=== PATIENT | male | born 1940 | race Caucasian/White ===

== ENCOUNTER 2017-09-10 20:04 | Emergency (ER) | payer MEDICARE ==
[2017-09-10] MEDS ORDERED: NS 0.9% 1000 ML* 1,000 ML IV ONE (20:30)
[2017-09-10 20:53] LABS: ABS Basophils 0 10^3/ul (0-0.2); ABS Eosinophils 0 10^3/ul (0-0.6); ABS Lymphocytes 0.4 10^3/ul (1.0-4.8); ABS Monocytes 0.5 10^3/ul (0-0.8); ABS Nucleated RBC 0 10^3/ul; Eosinophil % 0.5 % (0-6); Hematocrit 32 % (42-52); Hemoglobin 10.1 g/dl (14.0-18.0); Mean Corpuscular HGB Conc 32 g/dl (31-36); Mean Corpuscular Hemoglobin 25 pg (27-31); Mean Corpuscular Volume 77 fL (80-94); Mean Platelet Volume 8.3 um3 (7.4-10.4); Nucleated Red Blood Cells % 0; Platelet Count 232 10^3/ul (150-450); Red Blood Count 4.12 10^6/ul (4.0-5.4); Red Cell Distribution Width 15 % (10.5-15); White Blood Count 7.9 10^3/ul (3.5-10.8)
--- NOTE | 2017-09-10 21:02 | ED ---
Cb Garcia Tiffany, scribed for Jaclyn Keenan MD on 09/10/17 at 2030 . Complex/Multi-Sys Presentation - HPI Summary HPI Summary: The patient is a 76 year old male BIBA to [facility] accompanied by two sons with a chief complaint of worsening overall condition since the last few days. Symptoms aggravated by nothing. Symptoms alleviated by nothing. Patient reports weakness, decreased appetite. Patient denies nausea, vomiting, shortness of breath. Per son, patient is in stage [address] Phillips ( oncologist at [facility] in [place]). Patient is scheduled for liver biopsy and kidney stent on 09/13/17 at [facility]. Pt is competent to make his own health decisions and states he is a DNR. Pt has a health care proxy, and his is first, and his son Robb is second on the health care proxy. - History Of Current Complaint Chief Complaint: EDGeneral Time Seen by Provider: 09/10/17 20:11 Hx Obtained From: Patient, Family/Assembly Leader - Sons Onset/Duration: Gradual Onset, Lasting Days - Few days, Still Present Timing: Constant Severity Currently: Moderate Severity Initially: Moderate Location: Negative Aggravating Factor(s): Nothing Alleviating Factor(s): Nothing Associated Signs And Symptoms: Positive: Weakness, Decreased Oral Intake, Other - reports weakness, decreased appetite; DENIES: nausea, vomiting, shortness of breath, chest pain - Allergies/Home Medications Allergies/Adverse Reactions: Allergies Allergy/AdvReac Type Severity Reaction Status Date / Time lactose Allergy Diarrhea Verified 09/10/17 20:10 Home Medications: Home Medications Fluorometholone 0.1% OPTH.BARB* [Fml 0.1% Opth.susp*] 1 drop BOTH EYES BID [History Confirmed 09/10/17] PMH/Surg Hx/FS Hx/Imm Hx Previously Healthy: No Endocrine/Hematology History: Denies: Hx Diabetes Cardiovascular History: Reports: Hx Hypertension Respiratory History: Reports: Hx Chronic Obstructive Pulmonary Disease (COPD) - dx 2001, Hx Pneumonia GI History: Reports: Hx Crohn's Disease - with partial colectomy History: Reports: Hx Benign Prostatic Hyperplasia - had prostatectomy, Other Problems/Disorders - prostate CA, bladder CA stage 4 Denies: Hx Renal Disease Sensory History: Reports: Hx Cataracts - both eyes, 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 Prostate CA - Surgical History Surgery Procedure, Year, and Place: prostate 2001, partial colectomy, bilat cataracts - Immunization History Date of Tetanus Vaccine: unk Date of Influenza Vaccine: unk Infectious Disease History: Yes Infectious Disease History: Reports: Hx Shingles - dx 2011 Denies: Traveled Outside the [place] in Last 30 Days - Family History Known Family History: Positive: Other - Mother had Parkinson's. Patient denies immediate family history for CA - Social History Lives: With Family Alcohol Use: None Alcohol Amount: 2-3 beers /wk Hx Substance Use: No Substance Use Type: Reports: None Hx Tobacco Use: Yes Smoking Status (MU): Former Smoker Type: Cigarettes Amount Used/How Often: pk day Length of Time of Smoking/Using Tobacco: 30year Have You Smoked in the Last Year: No Review of Systems Positive: Fatigue, Other - Worsening overall condition. Negative: Fever, Chills , Skin Diaphoresis Cardiovascular: Negative Negative: Shortness Of Breath Positive: Other - Decreased appetite. Negative: Vomiting, Nausea Genitourinary: Negative Positive: no symptoms reported, other - no sharp Skin: Negative Positive: Weakness Psychological: Normal All Other Systems Reviewed And Are Negative: Yes Physical Exam - Summary Physical Exam Summary: Appearance: Patient is acutely and chronically ill, emaciated, in no respiratory distress, completely coherent and able to speak for himself, on 4L NC continuously at home Skin: Warm, color reflects adequate perfusion Head: Normal Head/Face inspection Eyes: Conjunctiva clear ENT: Dry oral mucosa, white patches on his tongue Neck: Supple, no nodes, no JVD. Chest: barrel chest Respiratory: Lungs clear, no respiratory distress, Lungs diminished breath sounds throughout Cardio: RRR, No murmur, pulses normal, brisk capillary refill Abdomen: soft, nontender, no sharp, no masses, liver nonpalp, nontender Bowel sounds: present Musculoskeletal: Strength Intact/ ROM intact. No calf tenderness. No edema. Psychological: Normal Neuro: Alert O x 3, muscle tone normal, no focal deficit Triage Information Reviewed: Yes Vital Signs On Initial Exam: Initial Vitals Temp Pulse Resp BP Pulse Ox 99.8 F 100 14 167/87 97 09/10/17 20:08 09/10/17 20:08 09/10/17 20:08 09/10/17 20:08 09/10/17 20:08 Vital Signs Reviewed: Yes Diagnostics - Vital Signs Vital Signs Temp Pulse Resp BP Pulse Ox 09/10/17 20:08 99.8 F 100 14 167/ 97 - Laboratory Lab Results: Lab Results 09/10/17 09/10/17 Range/Units 20:40 20:40 WBC 7.9 (3.5-10.8) 10^3/ul RBC 4.12 (4.0-5.4) 10^6/ul Hgb 10.1 L (14.0-18.0) g/dl Hct 32 L (42-52) % MCV 77 L (80-94) fL MCH 25 L (27-31) pg MCHC 32 (31-36) g/dl RDW 15 (10.5-15) % Plt Count 232 (150-450) 10^3/ul MPV 8.3 (7.4-10.4) um3 Neut % (Auto) 88.2 H (38-83) % Lymph % (Auto) 5.0 L (25-47) % [place] % (Auto) 5.7 (0-7) % Eos % (Auto) 0.5 (0-6) % Baso % (Auto) 0.6 (0-2) % Absolute Neuts (auto) 7.0 (1.5-7.7) 10^3/ul Absolute Lymphs (auto) 0.4 L (1.0-4.8) 10^3/ul Absolute Monos (auto) 0.5 (0-0.8) 10^3/ul Absolute Eos (auto) 0 (0-0.6) 10^3/ul Absolute Basos (auto) 0 (0-0.2) 10^3/ul Absolute Nucleated RBC 0 10^3/ul Nucleated RBC % 0 INR (Anticoag Therapy) 1.00 (0.77-1.02) Result Diagrams: 09/10/17 20:40 09/10/17 20:40 Lab Statement: Any lab studies that have been ordered have been reviewed, and results considered in the medical decision making process. Re-Evaluation - Re-Evaluation First Eval Re-Evaluation Time: 21:29 Change: Unchanged Comment: Patient and his family are agreeable to transfer. Second Eval Re-Evaluation Time: 21:48 Change: Unchanged Comment: Patient and family are informed that patient will be transferred to [facility] and admitted to Dr. Levine (hospitalist at [facility]). Complex Multi-Symp Course/Dx Course Of Treatment: Allergies noted. High blood pressure noted. Patient medications reviewed this visit. Patient given IV fluids. Labs were obtained, showing worsening renal function. Spoke with [facility] transfer center at 21:31. Dr. Levine (hospitalist) will admit the patient. Reason for transfer is higher level of care, liver biopsy and ureteral stent and further oncology care planned and not available at [facility] today. Dr. Levine notified of patient's situation at 21:37, who requests flu swab. Family are agreeable to this transfer plan. Transfer paperwork was filled out for patient. Dr. Jensen is aware of pt in the ED, with transfer acceptance, pending transport by ambulance with IV fluids 150ml/hr, O2 NC 4L, and DNR in place. - Diagnoses Differential Diagnoses/HQI/PQRI: Metabolic Abnormality, Sepsis, Urinary Tract Infection Provider Diagnoses: Dehydration, Bladder cancer metastasized to liver, COPD (chronic obstructive pulmonary disease), [id number] kidney injury Discharge - Sign-Out/Discharge Documenting (check all that apply): [facility] - Discharge Plan Condition: Stable Disposition: TRANS HIGHER LVL OF CARE FAC - Billing Disposition and Condition Condition: STABLE Disposition: EMTALA The documentation as recorded by the Cb arthur Tiffany accurately reflects the service I personally performed and the decisions made by , Jaclyn Keenan MD.
[2017-09-10 21:04] LABS: EGFR Non-African American 31.8 (>60)
[2017-09-10] MEDS ORDERED: NS 0.9% 1000 ML* 1,000 ML IV SCH (22:15)
[2017-09-10 23:09] VITALS: BP 150/76
== END 2017-09-10 23:08 | disposition short-term general hospital (02) ==
LOC: ED 20:04
DX: E86.0 Dehydration (principal); R53.1 Weakness; C67.9 Malignant neoplasm of bladder, unspecified; C78.7 Secondary malignant neoplasm of liver and intrahepatic bile duct; J44.9 Chronic obstructive pulmonary disease, unspecified; N17.9 Acute kidney failure, unspecified; Z87.891 Personal history of nicotine dependence
CPT/HCPCS: 36415; 80053; 83605; 83735; 85025; 85610; 86140; 87502; 99283

== ENCOUNTER 2017-09-18 20:02 | Inpatient (IN) | payer MEDICARE ==
[2017-09-18 20:32] LABS: ABS Basophils 0.1 10^3/ul (0-0.2); ABS Eosinophils 0 10^3/ul (0-0.6); ABS Lymphocytes 0.3 10^3/ul (1.0-4.8); ABS Monocytes 0.7 10^3/ul (0-0.8); ABS Nucleated RBC 0 10^3/ul; Eosinophil % 0.1 % (0-6); Hematocrit 33 % (42-52); Hemoglobin 10.3 g/dl (14.0-18.0); Lymphocyte % 2.2 % (25-47); Mean Corpuscular HGB Conc 32 g/dl (31-36); Mean Corpuscular Hemoglobin 24 pg (27-31); Mean Corpuscular Volume 77 fL (80-94); Mean Platelet Volume 7.9 um3 (7.4-10.4); Nucleated Red Blood Cells % 0; Platelet Count 317 10^3/ul (150-450); Red Blood Count 4.25 10^6/ul (4.0-5.4); Red Cell Distribution Width 15 % (10.5-15); White Blood Count 14.1 10^3/ul (3.5-10.8)
[2017-09-18 20:41] LABS: INR 1.02 (0.77-1.02)
--- NOTE | 2017-09-18 20:53 | RAD ---
INDICATION: Chest pain and shortness of breath COMPARISON: Chest x-ray dated September 02, 2017 TECHNIQUE: Single AP portable view of the chest was obtained. FINDINGS: Image quality is compromised due to the relative inferiority of a portable chest x-ray. The heart and mediastinum exhibit normal size and contour. Similar the prior chest x-rays the lungs appear hyperaerated in the AP projection. The diaphragm are flattened. There is faint patchy density at the bilateral lung bases more severely at the left lung base than the right. Visualized bones are normal for the patient's age. IMPRESSION: 1. Again seen is stigmata of chronic obstructive pulmonary disease. 2. Interval development of patchy density at the left worse than right lung bases which could represent pneumonia or other infiltrate according to the patient's clinical presentation.
[2017-09-18] MEDS ORDERED: Albuterol 2.5 MG/3 ML NEB.SOL* (0.083%) INH ONE (21:17)
[2017-09-18] MEDS ORDERED: Iodixanol 320 (CONTRAST) 100 ML SDV IV ONE (22:13)
--- NOTE | 2017-09-18 22:54 | ED ---
Stacia Garcia Gabriel, scribed for Jaclyn Keenan MD on 09/18/17 at 2049 . Shortness of Breath - HPI Summary HPI Summary: This patient is a 76 year old M [facility] [facility] accompanied by his son Robb and his with a chief complaint of sudden onset SOB that began this morning but worsened throughout the day. The pt denies chest pain. Has hx COPD on home O2, metastatic bladder cancer to liver, and remote hx prostate cancer. Symptoms aggravated by nothing. Symptoms alleviated by non rebreather mask by EMS. Patient reports pallor, palpitations, temp of 100.2, and chills. Patient denies urinary symptoms, decreased PO intake, and constipation. Pt just finished Tamiflu for influenza B today. Uses 4l O2 at home. In ED upon initial encounter , pt is on 4L NC with sat of 96%. HR of 123, temporal temp 100.2. Pt was seen in [facility] on 09-10-17 and transferred to [facility] for a liver biopsy and ureteral stent for hydronephrosis. The liver bx was performed on 09/12 but family state they were unable to do the ureteral stent. Pt was dx'd with influenza during that admission. Pt was discharged from [facility] on 09-14-17. Hx of prostate cancer, considered "treated" per family. Pt's states that his color looks better now and states his breathing has improved since nonrebreather RX by EMS. Pt was using both his O2 concentrator, and nasal canula O2 when EMS arrived and they found sats to be 90%. The pt wishes to be a full code. - History of Current Complaint Chief Complaint: EDShortnessOfBreath Time Seen by Provider: 09/18/17 20:08 Hx Obtained From: Patient, Family/Instructor Pilot, Medical Records - [facility] record Onset/Duration: Sudden Onset, Still Present Timing: Constant Current Severity: Moderate Dyspnea At: Rest Aggrevating Factors: Nothing Alleviating Factors: EMS Tx Associated Signs & Symptoms: Negative - chest pain, urinary symptoms, decreased PO intake, Fever, Chills - Risk Factors Pulmonary Embolism: Malignancy - Allergy/Home Medications Allergies/Adverse Reactions: Allergies Allergy/AdvReac Type Severity Reaction Status Date / Time lactose Allergy Diarrhea Verified 09/10/17 20:10 Home Medications: Home Medications Cholecalciferol (Vitamin D3) [Vitamin D3] 1,000 unit PO DAILY 09/18/17 [History Confirmed 09/18/17] Cranberry Fruit Extract [Cranberry] 250 mg PO DAILY 09/18/17 [History Confirmed 09/18/17] Diphenoxylate HCl/Atropine [Lomotil] 1 tab PO BID PRN 09/18/17 [History Confirmed 09/18/17] Levothyroxine Sodium [Levothyroxine Sodium] 75 mcg PO DAILY 09/18/17 [History Confirmed 09/18/17] Loteprednol 0.5% OPH.SUSP(NF) [Lotemax 0.5% OPH.SUSP (NF)] 1 drop BOTH EYES QID 09/18/17 [History Confirmed 09/18/17] Multivitamin [Multivitamins] 1 cap PO DAILY 09/18/17 [History Confirmed 09/18/17 ] diphenhydrAMINE HCl [Diphenhydramine HCl] 25 mg PO BEDTIME PRN 09/18/17 [ History Confirmed 09/18/17] PMH/Surg Hx/FS Hx/Imm Hx Previously Healthy: No Endocrine/Hematology History: Denies: Hx Diabetes Cardiovascular History: Reports: Hx Hypertension Respiratory History: Reports: Hx Chronic Obstructive Pulmonary Disease (COPD) - dx 2001, Hx Pneumonia GI History: Reports: Hx Crohn's Disease - with partial colectomy History: Reports: Hx Benign Prostatic Hyperplasia - had prostatectomy, Other Problems/Disorders - prostate CA, bladder CA stage 4 Denies: Hx Renal Disease Sensory History: Reports: Hx Cataracts - both eyes, Hx Contacts or Glasses - has had bilat corneal transplants, Hx Glaucoma - left eye Opthamlomology History: Reports: Hx Cataracts - both eyes, Hx Contacts or Glasses - has had bilat corneal transplants, Hx Glaucoma - left eye - Cancer History Cancer Type, Location and Year: Currently being treated for 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 Prostate CA - Surgical History Surgery Procedure, Year, and Place: prostate 2001, partial colectomy, bilat cataracts - Immunization History Date of Tetanus Vaccine: unk Date of Influenza Vaccine: unk Infectious Disease History: No Infectious Disease History: Reports: Hx Shingles - dx 2011 Denies: Traveled Outside the US in Last 30 Days - Family History Known Family History: Positive: Other - Mother had Parkinson's. Patient denies immediate family history for CA - Social History Lives: With Family Alcohol Use: None Alcohol Amount: 2-3 beers /wk Hx Substance Use: No Substance Use Type: Reports: None Hx Tobacco Use: Yes Smoking Status (MU): Former Smoker Type: Cigarettes Amount Used/How Often: pk day Length of Time of Smoking/Using Tobacco: 30year Have You Smoked in the Last Year: No Review of Systems Constitutional: Negative - decreased PO intake Positive: Chills, Other - Tmax 100.2 Positive: Palpitations. Negative: Chest Pain Positive: Shortness Of Breath Gastrointestinal: Negative Positive: no symptoms reported Skin: Negative Neurological: Negative Psychological: Normal All Other Systems Reviewed And Are Negative: Yes Physical Exam - Summary Physical Exam Summary: Appearance: Ill-appearing, no pain distress, cachectic. Pt speaks full sentences Skin: Warm, color reflects adequate perfusion Head: Normal Head/Face inspection Eyes: Conjunctiva clear ENT: Normal inspection Neck: Supple, no nodes, no JVD. Respiratory: decreased breath sounds, congested cough, SOB, O2 sat of 96 on 4 L Cardio: tachycardia at 122, No murmur, pulses normal, brisk capillary refill Abdomen: soft, nontender Bowel sounds: present Musculoskeletal: Strength Intact/ ROM intact. No calf tenderness. No edema. Psychological: Normal Neuro: Alert, muscle tone normal, no focal deficit Triage Information Reviewed: Yes Vital Signs On Initial Exam: Initial Vitals Temp Pulse Resp BP Pulse Ox 98.9 F 132 18 158/88 100 09/18/17 20:09 09/18/17 20:09 09/18/17 20:09 09/18/17 20:09 09/18/17 20:09 Vital Signs Reviewed: Yes Diagnostics - Vital Signs Vital Signs Temp Pulse Resp BP Pulse Ox 09/18/17 20:09 98.9 F 132 18 158/88 100 - Laboratory Lab Results: Lab Results 09/18/17 09/18/17 Range/Units 20:20 20:20 WBC 14.1 H (3.5-10.8) 10^3/ul RBC 4.25 (4.0-5.4) 10^6/ul Hgb 10.3 L (14.0-18.0) g/dl Hct 33 L (42-52) % MCV 77 L (80-94) fL MCH 24 L (27-31) pg MCHC 32 (31-36) g/dl RDW 15 (10.5-15) % Plt Count 317 (150-450) 10^3/ul MPV 7.9 (7.4-10.4) um3 Neut % (Auto) 92.1 H (38-83) % Lymph % (Auto) 2.2 L (25-47) % [place] % (Auto) 5.1 (0-7) % Eos % (Auto) 0.1 (0-6) % Baso % (Auto) 0.5 (0-2) % Absolute Neuts (auto) 13.0 H (1.5-7.7) 10^3/ul Absolute Lymphs (auto) 0.3 L (1.0-4.8) 10^3/ul Absolute Monos (auto) 0.7 (0-0.8) 10^3/ul Absolute Eos (auto) 0 (0-0.6) 10^3/ul Absolute Basos (auto) 0.1 (0-0.2) 10^3/ul Absolute Nucleated RBC 0 10^3/ul Nucleated RBC % 0 INR (Anticoag Therapy) 1.02 (0.77-1.02) APTT 30.0 (26.0-36.3) seconds D-Dimer, Quantitative 998 H (Less Than 230) ng/mL Result Diagrams: 09/19/17 05:34 09/19/17 05:34 Lab Statement: Any lab studies that have been ordered have been reviewed, and results considered in the medical decision making process. - Radiology CXR Radiology Interpretation Completed By: Radiologist - 1. Again seen is stigmata of chronic obstructive pulmonary disease. 2. Interval development of patchy density at the left worse than right lung bases which could represent pneumonia or other infiltrate according to the patient's clinical presentation. ED physician has reviewed this radiology report. - EKG 2005 Cardiac Rate: NL EKG Rhythm: Sinus Tachycardia - at [address] Segment: Non-Specific Ectopy: None EKG Interpretation: nml AVCT, prolonged IVCT, LAFB, nml QTc, left axis of -51 EKG Comparison: Other - prolonged IVCT since 04/06/15. EKG discussed with Dr. Barrientos 2131 Cardiac Rate: Tachycardia EKG Rhythm: Sinus Tachycardia ST Segment: Non-Specific Ectopy: None EKG Interpretation: nl AVCT, prolonged IVCT, LAFB, diffuse ST-T wave changes EKG Comparison: No Significant Change - from earlier today, discussed with Dr. Barrientos Re-Evaluation - Re-Evaluation First Eval Re-Evaluation Time: 21:05 - SOB improved, still denies chest pain. Pt and family advised of abnormal troponin and d dimer. Change: Improved Second Eval Re-Evaluation Time: 22:00 - Pt and family advised of admission and awaiting CTA results. Pt with SOB improved, no chest pain. Change: Unchanged Course/Dx - Course Course Of Treatment: Pt recognized as risk for sepsis of possible pulmonary or urinary source, upon arrival, with recent dx influenza, hx stage 4 bladder CA with hydronephrosis, tachypnea, tachycardia and low grade temp (100.2). Sepsis fluids not initiated pending renal status with known hydronephrosis, not wanting to fluid overload pt who may now be completely obstructed due to cancer with bilateral hydronephrosis and require dialysis. Also pt with abnormal EKG, consideration of possible STEMI, and elevated troponin, did not want to fluid overload pt who may have diastolic or systolic congestive heart failure. Pt's renal function was just sufficient for pt to have a CTA chest as his sudden onset SOB, hx malignancy and recent operative procedure of liver bx, put pt at risk for pulmonary embolus. Elevated d dimer and infiltrate on CXR may represent PE or metastatic cancer, rather than simply post influenza pneumonia, so antibiotics held in ED pending definitive diagnosis. Pt with only low grade temp, but immune status may be suppressed due to cancer. Antibiotics deferred until diagnosis established, with both very elevated d dimer (998) and very elevated troponin (0.48), possible PE or nonSTEMI. Cardiology consult, Dr. Barrientos, reviewed first two EKG's done in ED and states it is not a STEMI, will follow. Pt admitted to hospitalist with CTA pending. Assessment/Plan: First EKG reveals sinus tach at 127 nml AVCT, prolonged IVCT ( 108) LAFB, nml QTc, left axis -51. Diffuse ST-T wave changes. Compared with , QRS is more prolonged. Second EKG reveals ST 115, nl AVCT, QRS 94, nl QTc, left axis, diffuse ST-T wave changes. CXR reveals, per radiologist, 1. Again seen is stigmata of chronic obstructive pulmonary disease. 2. Interval development of patchy density at the left worse than right lung bases which. could represent pneumonia or other infiltrate according to the patient's clinical. presentation. Test results show WBC of 14, Hct of 33, lymph of 2.2, D-dimer of 998, BNP of 19.5, and a troponin of 0.48. In the ED course the patient was given albuterol. Consult Dr. Abreu, who recommends consult cardiology and CTA chest. Consult Dr. Barrientos re EKG and elevated troponin, and he stated it is not a STEMI and cardiology will consult. Dr. Abreu accepted the patient for admission. CTA pending at time of acceptance for admission. Pt and family agree with admission. Pt is competent and able to express his own wishes, and pt states he is a full code. - Diagnoses Differential Diagnosis/HQI/PQRI: Positive: CHF, COPD Exacerbation, DE, Pneumonia , Pulmonary Embolism, Other - metastatic cancer Provider Diagnoses: Dyspnea, Elevated troponin, Bladder cancer, COPD exacerbation, Infiltrate of lung present on imaging of chest, Elevated d-dimer, SIRS (systemic inflammatory response syndrome), Chronic kidney disease, stage 3, Hydronephrosis due to obstructive malignant neoplasm of bladder - Physician Notifications Discussed Care of Patient With: Ottoniel Abreu - consult cardiology, order CTA Time Discussed With Above Provider: 21:30 Instructed by Provider To: Admit As Inpatient - Critical Care Time Critical Care Time: 30-74 min - 30 mins Discharge - Sign-Out/Discharge Documenting (check all that apply): Discharge - Discharge Plan Condition: Stable Disposition: [facility]ITT[facility] Disposition and Condition Condition: STABLE Disposition: [facility] Consult Consult: 21:40 We discussed patient care with Dr. Barrientos and he stated it is not a STEMI and cardiology will consult. 2129 We discussed patient care with Dr. Cabello and they recommended contacting cardiology and getting a CTA chest. He has also accepted the patient for admission. The documentation as recorded by the Stacia arthur Gabriel accurately reflects the service I personally performed and the decisions made by , Jaclyn Keenan MD.
[2017-09-19 01:01] LABS: Urine Appearance Clear; Urine Blood Negative (Negative); Urine Color Yellow; Urine Ketones Negative (Negative); Urine Protein 2+(100 mg/dL) (Negative); Urine Urobilinogen Negative (Negative)
--- NOTE | 2017-09-19 01:41 | HP ---
H&P (Free Text) History and Physical: PCP: Addie Tay MD Date/Time: 09/19/2017 CC: SOB HPI: Mr Burns is a 76YO male HX COPD, Crohn's, hypothyroidism who was recently diagnosed with bladder CA with 2nd R hydronephrosis who developed onset this AM of SOB persisting and progressing throughout the day until family decided to call EMS for transport. Temperature at home was 100.2F. Mr Burns admits to F/C, malaise, & fatigue, but denies chest pain, palpitations, N/V, light-headedness, or other issues. He was transferred from [facility] to [facility] 09/10 for R hydronephrosis and underwent a hepatic BX this past Tuesday. He reports ~50 pound weight loss over the last year. PMedHx bladder CA stg 4 prostate CA s/p prostatectomy COPD on 4L continuous oxygen Crohn's disease hypothyroidism BPH shingles glaucoma Ambulatory Orders Albuterol/Ipratropium INH(NF) [Combivent Inhaler(NF)] 2 puff INH Q6H PRN Budesonide/Formoterol Fumarate [Symbicort] 1 aer IN BID 04/14/13 Tiotropium CAP.INH* [Spiriva*] 1 cap INH DAILY 04/14/13 Albuterol HFA INHALER* [Ventolin HFA Inhaler*] 1 puff INH Q4H PRN 04/06/15 Brimonidine Tartrate 1 drop LEFT EYE BID 04/06/15 Fluorometholone 0.1% OPTH.BARB* [Fml 0.1% Opth.susp*] 1 drop BOTH EYES BID Cholecalciferol (Vitamin D3) [Vitamin D3] 1,000 unit PO DAILY 09/18/17 Cranberry Fruit Extract [Cranberry] 250 mg PO DAILY 09/18/17 Diphenoxylate HCl/Atropine [Lomotil] 1 tab PO BID PRN 09/18/17 Levothyroxine Sodium [Levothyroxine Sodium] 75 mcg PO DAILY 09/18/17 Loteprednol 0.5% OPH.SUSP(NF) [Lotemax 0.5% OPH.SUSP (NF)] 1 drop BOTH EYES QID 09/18/17 Multivitamin [Multivitamins] 1 cap PO DAILY 09/18/17 diphenhydrAMINE HCl [Diphenhydramine HCl] 25 mg PO BEDTIME PRN 09/18/17 Allergies lactose Allergy (Verified 09/10/17 20:10) Diarrhea PSurgHx B corneal transplants prostatectomy colectomy for complications of Crohn's SocHx: quit smoking >10 years ago w/ ~30PYHX, 2-3 alcoholic drinks weekly, no recreational drugs; lives with ; retired [employer]; full, needs revisiting FamHx: Mother: passed at age 85 2nd complications of Parkinsonism; Father: passed at age 72 2nd MVA ROS: as above, otherwise reviewed and all were negative vitals: Vital Signs Temp 37.2 C 09/18/17 20:09 Pulse 104 09/19/17 01:00 Resp 14 09/19/17 01:00 BP 114/61 09/19/17 01:00 Pulse Ox 98 09/19/17 01:00 Intake & Output 09/18/17 09/18/17 09/19/17 11:59 23:59 11:59 Weight 49.895 kg Constitutional: NAD, normally developed, cachectic elderly white male HEENM: atraumatic; sclera/conjunctiva: anicteric/clear; hearing: clinically intact; oropharynx: clear, mucosa tacky Neck: soft tissue: no nuchal rigidity; thyroid: non-tender Pulmonary: clear to auscultation bilaterally, fair aeration, no accessory muscle use CV: TR/RR, normal S1S2, no carotid bruit, no jugular venous distention, 2+ B DP/ PT, no edema Abdominal: soft, non-distended, non-tender, no rebound/guarding/rigidity, normoactive bowel sounds, no hepatosplenomegaly or masses, no costovertebral angle tenderness Musculoskeletal: general: generalized atrophy, no tenderness w/ palpation Integumental: normal appearance and texture of exposed skin Psychiatric orientation: AA&O to PPS affect: calm mood: cooperative eye contact: fair content: reliable responses: timely insight: fair to good Testing: Lab Results 09/18/17 09/18/17 09/18/17 Range/Units 20:20 20:20 20:20 WBC 14.1 H (3.5-10.8) 10^3/ul RBC 4.25 (4.0-5.4) 10^6/ul Hgb 10.3 L (14.0-18.0) g/dl Hct 33 L (42-52) % MCV 77 L (80-94) fL MCH 24 L (27-31) pg MCHC 32 (31-36) g/dl RDW 15 (10.5-15) % Plt Count 317 (150-450) 10^3/ul MPV 7.9 (7.4-10.4) um3 Neut % (Auto) 92.1 H (38-83) % Lymph % (Auto) 2.2 L (25-47) % Door % (Auto) 5.1 (0-7) % Eos % (Auto) 0.1 (0-6) % Baso % (Auto) 0.5 (0-2) % Absolute Neuts (auto) 13.0 H (1.5-7.7) 10^3/ul Absolute Lymphs (auto) 0.3 L (1.0-4.8) 10^3/ul Absolute Monos (auto) 0.7 (0-0.8) 10^3/ul Absolute Eos (auto) 0 (0-0.6) 10^3/ul Absolute Basos (auto) 0.1 (0-0.2) 10^3/ul Absolute Nucleated RBC 0 10^3/ul Nucleated RBC % 0 INR (Anticoag Therapy) 1.02 (0.77-1.02) APTT 30.0 (26.0-36.3) seconds D-Dimer, Quantitative 998 H (Less Than 230) ng/mL Sodium (139-145) mmol/L Potassium (3.5-5.0) mmol/L Chloride (101-111) mmol/L Carbon Dioxide (22-32) mmol/L Anion Gap (2-11) mmol/L BUN (6-24) mg/dL Creatinine (0.67-1.17) mg/dL Est GFR ( Amer) (>60) Est GFR (Non-Af Amer) (>60) BUN/Creatinine Ratio (8-20) Glucose (70-100) mg/dL Lactic Acid (0.5-2.0) mmol/L Calcium (8.6-10.3) mg/dL Magnesium (1.9-2.7) mg/dL Total Bilirubin (0.2-1.0) mg/dL AST (13-39) U/L ALT (7-52) U/L Alkaline Phosphatase (34-104) U/L Total Creatine Kinase (10-223) U/L CK-MB (CK-2) (0.6-6.3) ng/mL Troponin I (<0.04) ng/mL B-Natriuretic Peptide 138 H ( - 100) pg/mL Total Protein (6.4-8.9) g/dL Albumin (3.2-5.2) g/dL Globulin (2-4) g/dL Albumin/Globulin Ratio (1-3) TSH (0.34-5.60) mcIU/mL Thyroxine (T4) (6.09-12.23) mcg/mL Urine Color Urine Appearance Urine pH (5-9) Ur Specific [place] (1.010-1.030) Urine Protein (Negative) Urine Ketones (Negative) Urine Blood (Negative) Urine Nitrate (Negative) Urine Bilirubin (Negative) Urine Urobilinogen (Negative) Ur Leukocyte Esterase (Negative) Urine WBC (Auto) (Absent) Urine RBC (Auto) (Absent) Ur Squamous Epith Cells (Absent) Urine Bacteria (Absent) Urine Glucose (Negative) Urine Ascorbic Acid (Negative) 09/18/17 09/18/17 09/18/17 Range/Units 20:20 20:20 23:35 WBC (3.5-10.8) 10^3/ul RBC (4.0-5.4) 10^6/ul Hgb (14.0-18.0) g/dl Hct (42-52) % MCV (80-94) fL MCH (27-31) pg MCHC (31-36) g/dl RDW (10.5-15) % Plt Count (150-450) 10^3/ul MPV (7.4-10.4) um3 Neut % (Auto) (38-83) % Lymph % (Auto) (25-47) % Door % (Auto) (0-7) % Eos % (Auto) (0-6) % Baso % (Auto) (0-2) % Absolute Neuts (auto) (1.5-7.7) 10^3/ul Absolute Lymphs (auto) (1.0-4.8) 10^3/ul Absolute Monos (auto) (0-0.8) 10^3/ul Absolute Eos (auto) (0-0.6) 10^3/ul Absolute Basos (auto) (0-0.2) 10^3/ul Absolute Nucleated RBC 10^3/ul Nucleated RBC % INR (Anticoag Therapy) (0.77-1.02) APTT (26.0-36.3) seconds D-Dimer, Quantitative (Less Than 230) ng/mL Sodium 137 L (139-145) mmol/L Potassium 5.0 (3.5-5.0) mmol/L Chloride 99 L (101-111) mmol/L Carbon Dioxide 30 (22-32) mmol/L Anion Gap 8 (2-11) mmol/L BUN 24 (6-24) mg/dL Creatinine 1.61 H (0.67-1.17) mg/dL Est GFR ( Amer) 54.1 (>60) Est GFR (Non-Af Amer) 42.0 (>60) BUN/Creatinine Ratio 14.9 (8-20) Glucose 182 H (70-100) mg/dL Lactic Acid 2.0 (0.5-2.0) mmol/L Calcium 9.4 (8.6-10.3) mg/dL Magnesium 1.8 L (1.9-2.7) mg/dL Total Bilirubin 0.40 (0.2-1.0) mg/dL AST 33 (13-39) U/L ALT 17 (7-52) U/L Alkaline Phosphatase 66 (34-104) U/L Total Creatine Kinase 50 (10-223) U/L CK-MB (CK-2) 4.6 (0.6-6.3) ng/mL Troponin I 0.48 H* 1.30 H* (<0.04) ng/mL B-Natriuretic Peptide ( - 100) pg/mL Total Protein 7.4 (6.4-8.9) g/dL Albumin 3.8 (3.2-5.2) g/dL Globulin 3.6 (2-4) g/dL Albumin/Globulin Ratio 1.1 (1-3) TSH 19.50 H (0.34-5.60) mcIU/mL Thyroxine (T4) 8.65 (6.09-12.23) mcg/mL Urine Color Urine Appearance Urine pH (5-9) Ur Specific [place] (1.010-1.030) Urine Protein (Negative) Urine Ketones (Negative) Urine Blood (Negative) Urine Nitrate (Negative) Urine Bilirubin (Negative) Urine Urobilinogen (Negative) Ur Leukocyte Esterase (Negative) Urine WBC (Auto) (Absent) Urine RBC (Auto) (Absent) Ur Squamous Epith Cells (Absent) Urine Bacteria (Absent) Urine Glucose (Negative) Urine Ascorbic Acid (Negative) 09/18/17 Range/Units 23:52 WBC (3.5-10.8) 10^3/ul RBC (4.0-5.4) 10^6/ul Hgb (14.0-18.0) g/dl Hct (42-52) % MCV (80-94) fL MCH (27-31) pg MCHC (31-36) g/dl RDW (10.5-15) % Plt Count (150-450) 10^3/ul MPV (7.4-10.4) um3 Neut % (Auto) (38-83) % Lymph % (Auto) (25-47) % Door % (Auto) (0-7) % Eos % (Auto) (0-6) % Baso % (Auto) (0-2) % Absolute Neuts (auto) (1.5-7.7) 10^3/ul Absolute Lymphs (auto) (1.0-4.8) 10^3/ul Absolute Monos (auto) (0-0.8) 10^3/ul Absolute Eos (auto) (0-0.6) 10^3/ul Absolute Basos (auto) (0-0.2) 10^3/ul Absolute Nucleated RBC 10^3/ul Nucleated RBC % INR (Anticoag Therapy) (0.77-1.02) APTT (26.0-36.3) seconds D-Dimer, Quantitative (Less Than 230) ng/mL Sodium (139-145) mmol/L Potassium (3.5-5.0) mmol/L Chloride (101-111) mmol/L Carbon Dioxide (22-32) mmol/L Anion Gap (2-11) mmol/L BUN (6-24) mg/dL Creatinine (0.67-1.17) mg/dL Est GFR ( Amer) (>60) Est GFR (Non-Af Amer) (>60) BUN/Creatinine Ratio (8-20) Glucose (70-100) mg/dL Lactic Acid (0.5-2.0) mmol/L Calcium (8.6-10.3) mg/dL Magnesium (1.9-2.7) mg/dL Total Bilirubin (0.2-1.0) mg/dL AST (13-39) U/L ALT (7-52) U/L Alkaline Phosphatase (34-104) U/L Total Creatine Kinase (10-223) U/L CK-MB (CK-2) (0.6-6.3) ng/mL Troponin I (<0.04) ng/mL B-Natriuretic Peptide ( - 100) pg/mL Total Protein (6.4-8.9) g/dL Albumin (3.2-5.2) g/dL Globulin (2-4) g/dL Albumin/Globulin Ratio (1-3) TSH (0.34-5.60) mcIU/mL Thyroxine (T4) (6.09-12.23) mcg/mL Urine Color Yellow Urine Appearance Clear Urine pH 5.0 (5-9) Ur Specific [place] 1.030 (1.010-1.030) Urine Protein 2+(100 mg/dl) A (Negative) Urine Ketones Negative (Negative) Urine Blood Negative (Negative) Urine Nitrate Negative (Negative) Urine Bilirubin Negative (Negative) Urine Urobilinogen Negative (Negative) Ur Leukocyte Esterase Negative (Negative) Urine WBC (Auto) Trace(0-5/hpf) (Absent) Urine RBC (Auto) 1+(3-5/hpf) A (Absent) Ur Squamous Epith Cells Present A (Absent) Urine Bacteria Absent (Absent) Urine Glucose Negative (Negative) Urine Ascorbic Acid * A (Negative) ECG, personally reviewed: sinus tachycardia rate 127, poor R-wave progression CXR, personally reviewed: IMPRESSION: 1. Again seen is stigmata of chronic obstructive pulmonary disease. 2. Interval development of patchy density at the left worse than right lung bases which could represent pneumonia or other infiltrate according to the patient's clinical presentation. Impression: 76M recently diagnosed with bladder CA w/ 2nd R hydronephrosis presents with SOB found to have an NSTEMI DIAGNOSIS & PLAN Primary sepsis (tachycardia, tachypnea, leukocytosis) 2nd LLL pneumonia, HCAP : IV vancomycin, cefepime, & levofloxacin : IVFs : blood & sputum CXs : supplemental oxygen : supportive care NSTEMI : aspirin : 25mg PO metoprolol in ED : hold heparin 2nd suspected demand nature & recent hepatic BX : telemetry : trend troponin : Taryn Barrientos MD cardiology consulted, will follow Secondary bladder CA stg 4 : continue outpatient f/u w/ oncology prostate CA s/p prostatectomy : continue surveillance outpatient COPD : albuterol nebs : mometasone/formoterol : tiotropium Crohn's disease : no acute issues hypothyroidism : continue levothyroxine BPH : HX prostatectomy : no acute issues glaucoma : continue current regimen Admission Rational: inpatient for HCAP requiring IVFs & IV ABX DVTp: SCDs, hold anticoagulation given recent hepatic BX Code Status: full HCP:
[2017-09-19] MEDS ORDERED: Acetaminophen TAB* 325 MG PO PRN (01:43)
[2017-09-19] MEDS ORDERED: Aspirin 81 mg CHEW TAB* 81 MG TAB.CHEW PO ONE (01:43)
[2017-09-19] MEDS ORDERED: Albuterol 2.5 MG/3 ML NEB.SOL* (0.083%) INH PRN (01:43)
[2017-09-19] MEDS ORDERED: Ondansetron INJ* 2 MG/ML VIAL IV PRN (01:50)
[2017-09-19] MEDS ORDERED: Diphenoxylat/Atrop 2.5-0.025M* 1 TAB PO PRN (01:55)
[2017-09-19] MEDS ORDERED: diPHENhydraMINE PO* 25 MG PO PRN (01:55)
[2017-09-19] MEDS ORDERED: Cefepime(*) 1 GM in NS 0.9% 50 ML* 50 ML IVPB SCH (02:00)
[2017-09-19] MEDS ORDERED: NS 0.9% 1000 ML* 1,500 ML IV SCH (02:00)
[2017-09-19] MEDS ORDERED: Aspirin 81 mg CHEW TAB* 81 MG TAB.CHEW ONE (02:14)
[2017-09-19] MEDS ORDERED: Metoprolol Tartrate TAB* 25 MG PO ONE (02:25)
[2017-09-19] MEDS ORDERED: Vancomycin per Pharmacy* NOTE FOLLOW UP PRN (02:50)
[2017-09-19] MEDS ORDERED: Levofloxacin 750 MG IVPREMIX(* 750 MG/150 ML BAG IVPB SCH (03:30)
[2017-09-19] MEDS: Cefepime 1 GM in Dextrose(*) 1 GM/50 ML BAG IV SCH (04:01)
[2017-09-19] MEDS: CMCS:Melatonin (NF) 3 MG TAB PO PRN (04:02)
[2017-09-19] MEDS ORDERED: Vancomycin(*) 1,000 MG in NS 0.9% 250 ML* 250 ML IVPB ONE (05:00)
[2017-09-19 06:00] LABS: ABS Basophils 0 10^3/ul (0-0.2); ABS Eosinophils 0 10^3/ul (0-0.6); ABS Lymphocytes 0.4 10^3/ul (1.0-4.8); ABS Monocytes 0.6 10^3/ul (0-0.8); ABS Neutrophils 8.2 10^3/ul (1.5-7.7); ABS Nucleated RBC 0 10^3/ul; Eosinophil % 0.1 % (0-6); Hematocrit 28 % (42-52); Hemoglobin 8.9 g/dl (14.0-18.0); Lymphocyte % 4.5 % (25-47); Mean Corpuscular HGB Conc 32 g/dl (31-36); Mean Corpuscular Hemoglobin 25 pg (27-31); Mean Corpuscular Volume 76 fL (80-94); Mean Platelet Volume 8.2 um3 (7.4-10.4); Nucleated Red Blood Cells % 0.1; Platelet Count 230 10^3/ul (150-450); Red Blood Count 3.65 10^6/ul (4.0-5.4); Red Cell Distribution Width 15 % (10.5-15); White Blood Count 9.3 10^3/ul (3.5-10.8)
[2017-09-19 06:16] LABS: EGFR Non-African American 41.7 (>60)
[2017-09-19] MEDS: Omeprazole CAP* 20 MG PO SCH (06:34)
[2017-09-19] MEDS: Levothyroxine TAB* 75 MCG TAB PO SCH (06:34)
--- NOTE | 2017-09-19 06:48 | RAD ---
HISTORY: Shortness of breath, history of cancer, increased d-dimer COMPARISONS: CT of the abdomen and pelvis dated September 02, 2017 TECHNIQUE: Multiple contiguous axial CT scans of the chest were obtained after the administration of nonionic intravenous contrast, timed to the pulmonary arterial phase of contrast enhancement.. Coronal and sagittal multiplanar reformations are also submitted for review. FINDINGS: NECK AND THYROID: The lower neck and thyroid are unremarkable. CHEST WALL: There is no lower cervical, axillary, or supraclavicular lymphadenopathy by size criteria. HEART AND PERICARDIUM: The heart is unremarkable. AORTA AND PULMONARY VASCULATURE: There is no pulmonary arterial filling defect to suggest pulmonary embolism. There is no linear filling defect within the aorta to suggest aortic dissection. MEDIASTINUM: There is no mediastinal lymphadenopathy by size criteria. SAMY: There is no hilar lymphadenopathy by size criteria. AIRWAY AND ESOPHAGUS: There is bronchiectasis with bronchial wall thickening and mucus plugging of the lower lungs bilaterally. LUNG PARENCHYMA: There is diffuse centrilobular and panacinar emphysematous change. There are mild subpleural fibroid changes. There is subsegmental atelectasis of the left lung base.. PLEURA: No pleural abnormalities are noted. UPPER ABDOMEN: Again noted is severe right-sided hydronephrosis, similar to the previous examination. BONES AND SOFT TISSUES: No bone or soft tissue abnormalities are noted. OTHER: None. IMPRESSION: 1. NO PULMONARY ARTERIAL FILLING DEFECT TO SUGGEST PULMONARY EMBOLISM. 2. EMPHYSEMA. 3. MUCUS PLUGGING OF THE LOWER LOBES BILATERALLY. 4. SUBSEGMENTAL ATELECTASIS OF THE LEFT LUNG BASE. 5. STABLE SEVERE RIGHT-SIDED HYDRONEPHROSIS.
[2017-09-19] MEDS ORDERED: Albuterol 2.5 MG/3 ML NEB.SOL* (0.083%) INH SCH (07:00)
[2017-09-19] MEDS: Tiotropium CAP.INH* CAP.INH/18 MCG (USE ORDER SET !) INH SCH (08:35)
[2017-09-19] MEDS: Mometasone/Formoter 200/5 MDI INH SCH ×2 (08:36→21:08)
[2017-09-19] MEDS: guaiFENesin ER TAB 600 MG PO SCH ×2 (08:51→21:37)
[2017-09-19] MEDS: Fluorometholone 0.1% OPTH.SUS* 5 ML BTL BOTH EYES SCH ×2 (08:51→21:37)
[2017-09-19] MEDS: NS 0.9% 1000 ML* 1,000 ML IV SCH ×2 (08:51→19:50)
[2017-09-19] MEDS ORDERED: Spiriva Inhaler DEVICE* 1 EACH DEVICE SCH (09:00)
[2017-09-19] MEDS: Loteprednol 0.5% OPH.SUSP(NF) 5 ML BTL BOTH EYES SCH ×3 (09:03→16:11)
[2017-09-19] MEDS ORDERED: Enoxaparin(*) 40 MG/0.4 ML SYR SUBCUT SCH (10:00)
--- NOTE | 2017-09-19 10:17 | ECHO ---
Patient: SHAYY MOYER [facility] Rec#: [id number] : 1940 Date: 09/19/2017 Age: 76y Height: 180 cm / 70.9 in Weight: 49.9 kg / 110.0 lbs Sex: M BSA: 1.6 Room#: [facility] Admit Date#: 09/19/2017 Type: Inpatient Referring: Ottoniel Abreu MD Reading: Montana Aguero MD Gas Fitter: Rachell Diamond RN RDCS CC: Tomi Tay MD Transthoracic Echocardiogram Indication: NSTEMI BP: 109/58 HR: 90 Rhythm: NSR Findings History: COPD, former smoker, Crohn's disease, hypothyroidism, bladder cancer Technical Comments: The study quality is fair. The study is technically limited due to patient body habitus. The study is technically limited due to the patient's history of COPD. The study is technically limited due to the patient's smoking history. All images are obtained from a subcostal position. Left Ventricle: The left ventricular chamber size is normal. There is increased basal septal hypertrophy noted without evidence of an increased gradient across the left ventricular outflow tract. There are multiple regional wall motion abnormalities. There is moderately decreased left ventricular systolic function. The estimated ejection fraction is 30-35%. Abnormal left ventricular diastolic function is observed. The mid anteroseptal, mid anterolateral, apical septal, and apical lateral wall segments are hypokinetic (score 2). The mid anterior, and apical anterior wall segments are akinetic (score 3). Overall wallmotion score index is 2.33 Left Atrium: The left atrial chamber size is normal. Right Ventricle: The right ventricular cavity size is normal. The apex of the right ventricle appears hypokinetic. Right Atrium: The right atrial cavity size is normal. Aortic Valve: The aortic valve is trileaflet. The aortic valve leaflets are mildly thickened. There is no evidence of aortic regurgitation. There is borderline aortic stenosis present. The mean gradient of the aortic valve is 6.9 mmHg. The peak instantaneous gradient of the aortic valve is 13.2 mmHg. The aortic valve area, by peak velocities, is calculated at 2.1 cm2. The aortic valve area, by VTI's, is calculated at 2.4 cm2. Mitral Valve: The mitral valve leaflets are mildly thickened. There is mild mitral regurgitation. There is no evidence of mitral stenosis. Tricuspid Valve: The tricuspid valve leaflets are mildly thickened. There is trace to mild tricuspid regurgitation. There is evidence of mild to moderate pulmonary hypertension. There is no tricuspid stenosis. Pulmonic Valve: The pulmonic valve appears thickened with good excursion. There is no evidence of pulmonic regurgitation. Pericardium: There is no significant pericardial effusion. Aorta: There is no dilatation of the ascending aorta. The aortic arch is not well visualized. There is no dilation of the aortic root. Pulmonary Artery: The main pulmonary artery appears normal. Venous: The inferior vena cava appears normal in size. There is a greater than 50% respiratory change in the inferior vena cava dimension. Conclusions There is moderately decreased left ventricular systolic function. The estimated ejection fraction is 30-35%. There are multiple regional wall motion abnormalities. The mid anteroseptal, mid anterolateral, apical septal, and apical lateral wall segments are hypokinetic (score 2). The mid anterior, and apical anterior wall segments are akinetic (score 3). There is no evidence of aortic regurgitation. There is borderline aortic stenosis present. There is mild mitral regurgitation. There is trace to mild tricuspid regurgitation. There is evidence of mild to moderate pulmonary hypertension. There is no significant pericardial effusion. Compared to study of 04/07/15, the anteroseptal wall motion abnormalitiy is new Measurements Name Value Normal Range RVDdMajor (2D) 2.6 cm (2.2 - 4.4) RAd ISD 4CH 4.2 cm (3.4 - 4.9) IVSd (2D) 1.1 cm (0.6 - 1) LVPWd (2D) 0.9 cm (0.6 - 1) LVIDd (2D) 3.6 cm (3.6 - 5.4) LVIDs (2D) 2.6 cm - LV FS (2D) 28 % (25 - 45) Aortic Annulus 1.7 cm (1.4 - 2.6) Ao root diameter (2D) 2.9 cm (2.1 - 3.5) Ascending Ao 2.6 cm (2.1 - 3.4) LA dimension (AP) 2D 2.4 cm (2.3 - 3.8) LAd ISD 4CH 4.1 cm (2.9 - 5.3) LA ISD 4CH W 3.4 cm (2.5 - 4.5) Name Value Normal Range LA ESV SP 4CH (A/L) 26 ml - LA ESV SP 2CH (A/L) 20 ml - LA ESV BP (A/L) 23 ml - LA ESV BP (A/L) index 14 ml/m2 - LA ESV SP 4CH (MOD) 25 ml - LA ESV SP 2CH (MOD) 20 ml - Name Value Normal Range MV E-wave Vmax 0.59 m/sec - MV deceleration time 139 msec - MV A-wave Vmax 0.94 m/sec - MV E:A ratio 0.63 ratio - LV septal e' Vmax 0.03 m/sec - LV lateral e' Vmax 0.06 m/sec - LV E:e' septal ratio 19.7 ratio - LV E:e' lateral ratio 9.8 ratio - Name Value Normal Range AV Vmax 1.8 m/sec - AV VTI 29.4 cm - AV peak gradient 13.2 mmHg - AV mean gradient 6.9 mmHg - LVOT diameter 2 cm - LVOT Vmax 1.2 m/sec - LVOT VTI 22.3 cm - LVOT peak gradient 5.4 mmHg - LVOT mean gradient 3.4 mmHg - ARNOLD (continuity Vmax) 2.1 cm2 - ARNOLD (continuity VTI) 2.4 cm2 - Name Value Normal Range TR Vmax 3.2 m/sec - TR peak gradient 41 mmHg - RAP 3 mmHg - RVSP 44 mmHg - IVC diameter 1.3 cm - Name Value Normal Range PV Vmax 1.5 m/sec - Wallmotion BAS Not Seen BA Not Seen BAL Not Seen GRAYSON Not Seen BI Not Seen BIS Not Seen MAS Hypokinetic MA Akinetic MAL Hypokinetic MIL Not Seen NE Not Seen MIS Not Seen Hypokinetic AA Akinetic AL Hypokinetic AI Not Seen APEX Hypokinetic
[2017-09-19] MEDS: Enoxaparin(*) 60 MG/0.6 ML SYR SUBCUT SCH (11:06)
[2017-09-19] MEDS: Metoprolol Tartrate TAB* 25 MG PO SCH ×2 (11:06→18:19)
--- NOTE | 2017-09-19 19:20 | CONS ---
CC: Dr. Tomi Tay * CARDIOLOGY CONSULTATION: DATE OF CONSULT: 09/19/17 INDICATION FOR CONSULT: NSTEMI, shortness of breath. HISTORY OF PRESENT ILLNESS: The patient is a 76-year-old gentleman with a history of severe COPD, history of Crohn's disease, who was recently diagnosed with bladder cancer. The patient was admitted to the emergency room here at [facility] on 09/10/17. At that time he was diagnosed with severe hydronephrosis and was transferred down to [facility]. There, he was diagnosed with bladder cancer. The patient does not know any details of his diagnosis. Apparently, there is metastasis to the liver and the patient may be needing a biopsy of his liver. Exact treatment for his prostate cancer is yet undetermined. The patient states that he was home yesterday and had a sudden onset of shortness of breath. He always has chronic shortness of breath because of COPD; he is on chronic oxygen. The patient suddenly felt diaphoretic and very short of breath and decided to come to the emergency room. On arrival to the emergency room, his EKG showed normal sinus rhythm, left anterior fascicular block, no clear evidence of a STEMI; however, the patient was admitted to the hospital with the COPD exacerbation and shortness of breath. He had an elevated troponin level in the emergency room. The patient underwent a CT angiogram of the chest demonstrating no evidence of pulmonary embolism. His second troponin was more elevated at 1.49. The patient was diagnosed with a non-STEMI. In speaking with the patient today, he really has no specific complaints, his shortness of breath has improved. He does not have any angina at this point. The patient has denied any evidence of angina. PAST MEDICAL HISTORY: Significant for Crohn's disease; COPD, he is on 4 L continuous oxygen; hypothyroid; BPH; recently diagnosed bladder cancer as described above. PAST SURGICAL HISTORY: Corneal implants, prostatectomy, and colectomy in the past secondary to Crohn's. OUTPATIENT MEDICATIONS: 1. Spiriva inhaler. 2. Symbicort inhaler. 3. Albuterol inhaler. 4. Multiple eye drops. 5. Levothyroxine 75 mcg a day. 6. Multivitamin a day. 7. Benadryl 25 mg q.h.s. p.r.n. ALLERGIES: To LACTOSE. FAMILY HISTORY: Mother at 85 of Parkinson's. Father at 72 of motor vehicle accident. SOCIAL HISTORY: He is . He drinks 2 to 3 alcoholic drinks a week. He was a previous heavy smoker until 10 years ago when he quit. He is retired from [employer]. REVIEW OF SYSTEMS: Positive for fevers, positive for weight loss of 50 pounds in the last 6 months. Negative for lower extremity edema. Positive for increased urination. Rest of the 12-point review is unremarkable. PHYSICAL EXAM: Height is 5 feet 11 inches, weight is 107 pounds. Temperature 97.8 degrees Fahrenheit, heart rate is 92, blood pressure 106/58, respiratory rate is 20, oxygen saturation is 100% on 4 L. Sclerae anicteric. Oropharynx is pink without erythema. Carotids are 2+ without bruits. JVD is normal. Thyroid is normal. Cardiac Exam: S1, S2 without any murmurs, rubs, or gallops. PMI is normal. Lungs have markedly decreased breath sounds. There are no rhonchi or rales on exam. There is no dullness to percussion. Abdomen is soft, nontender, nondistended. Normoactive bowel sounds. Extremities: No edema. He has 2+ pulses throughout. The patient is awake, alert, and oriented. He moves all 4 extremities equally. Overall, the patient is in a debilitated state. DIAGNOSTIC STUDIES/LAB DATA: White count 9.3, hemoglobin 9, hematocrit 28, platelet count 230. Chemistry is within normal limits. BUN 26, creatinine 1.6. Peak troponin level 1.46. TSH is 19.5; his free T4 is 8.5, which is normal. EKG as described above. His echocardiogram shows normal LV size with moderately reduced LV systolic function with ejection fraction of 35%. His anterior, anteroapical, and anterolateral parmar are severely hypokinetic to akinetic. No significant valvular abnormalities. IMPRESSION AND PLAN: This 76-year-old gentleman was admitted to the hospital with what appears to be a non-ST elevation myocardial infarction. His echocardiogram shows a significant reduction in his left ventricular function. His previous echocardiogram in 2014 showed normal function. For now, the patient will be treated medically. He was started on Lovenox, he is started on beta blockers, and KINGSLEY inhibitor as tolerated. I am not exactly sure if the patient is a candidate for cardiac catheterization , as he has recently diagnosed stage IV bladder cancer and may not be able to tolerate dual antiplatelet care therapy if he were to get a cardiac stent. I will schedule the patient for a chemical nuclear stress test in the morning to evaluate cardiac perfusion. 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 This case was discussed with Dr. Marmolejo and Dr. Tay. [id number]/[facility] #: [id number] KAVEH
--- NOTE | 2017-09-19 19:51 | PN ---
Hospitalist Progress Note Date of Service: 09/19/17 Pt seen and examined. 76 yo with COPD chronic 4L with recent metastatic bladder cancer to liver confirmed on recent biopsy p/w sepsis, pna, NSTEMI. EF 30-35% with regional WMA. trop peaked 1.46. 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 did not get planned stent last week. very cachectic. Don't think he would do well with chemotherapy. Talked about involving palliative care and hospice with pt and . pt focused on getting to Tuesday appointment with heme/ onc Dr. Phillips. metoprolol and lovenox 1mg/kg daily started.
[2017-09-19] MEDS: Docusate CAP* 100 MG PO SCH (21:36)
[2017-09-20] MEDS: Metoprolol Tartrate TAB* 25 MG PO SCH (02:58)
[2017-09-20] MEDS: Cefepime 1 GM in Dextrose(*) 1 GM/50 ML BAG IV SCH (02:58)
[2017-09-20] MEDS: NS 0.9% 1000 ML* 1,000 ML IV SCH (03:02)
[2017-09-20] MEDS: Omeprazole CAP* 20 MG PO SCH (05:40)
[2017-09-20] MEDS: Levothyroxine TAB* 75 MCG TAB PO SCH (05:40)
[2017-09-20] MEDS ORDERED: Vancomycin(*) 750 MG in NS 0.9% 250 ML* 250 ML IVPB SCH (06:00)
[2017-09-20] MEDS: Tiotropium CAP.INH* CAP.INH/18 MCG (USE ORDER SET !) INH SCH (07:32)
[2017-09-20] MEDS: Mometasone/Formoter 200/5 MDI INH SCH ×2 (07:33→20:01)
[2017-09-20] MEDS: guaiFENesin ER TAB 600 MG PO SCH ×2 (10:20→20:31)
[2017-09-20] MEDS: Aspirin EC TAB* 81 MG TAB.EC PO SCH (10:21)
[2017-09-20] MEDS: Docusate CAP* 100 MG PO SCH ×2 (10:21→20:28)
[2017-09-20] MEDS: Losartan TAB* 25 MG PO SCH (10:21)
[2017-09-20] MEDS: Fluorometholone 0.1% OPTH.SUS* 5 ML BTL BOTH EYES SCH ×2 (10:21→20:29)
[2017-09-20 12:42] LABS: ABS Basophils 0.1 10^3/ul (0-0.2); ABS Eosinophils 0 10^3/ul (0-0.6); ABS Lymphocytes 0.4 10^3/ul (1.0-4.8); ABS Monocytes 0.6 10^3/ul (0-0.8); ABS Nucleated RBC 0 10^3/ul; Eosinophil % 0.4 % (0-6); Hematocrit 32 % (42-52); Hemoglobin 9.8 g/dl (14.0-18.0); Mean Corpuscular HGB Conc 31 g/dl (31-36); Mean Corpuscular Hemoglobin 24 pg (27-31); Mean Corpuscular Volume 77 fL (80-94); Nucleated Red Blood Cells % 0; Platelet Count 262 10^3/ul (150-450); Red Blood Count 4.11 10^6/ul (4.0-5.4); Red Cell Distribution Width 15 % (10.5-15)
[2017-09-20] MEDS: Enoxaparin(*) 60 MG/0.6 ML SYR SUBCUT SCH (12:46)
[2017-09-20 13:07] LABS: EGFR Non-African American 39.2 (>60)
--- NOTE | 2017-09-20 15:56 | PN ---
Subjective Date of Service: 09/20/17 Interval History: Pt declined stress test. worked with PT, signed off, at baseline Palliative care consulted ARB added. BB to long acting. Objective Active Medications: Acetaminophen (Tylenol Tab*) 650 mg PO Q6H PRN PRN Reason: FEVER/PAIN Albuterol (Ventolin 2.5 Mg/3 Ml Neb.Maria Alejandra*) 2.5 mg INH Q2H PRN PRN Reason: SOB/WHEEZING Aspirin (Aspirin Ec Tab*) 81 mg PO DAILY [facility] Last Admin: 09/20/17 10:21 Dose: 81 mg Brimonidine Tartrate (Alphagan 0.2%) 1 drop LEFT EYE BID [facility] Last Admin: 09/20/17 10:19 Dose: 1 drop Device (Tiotropium Inhaler Device*) 1 each .SEE ORDER .USE w/ SPIRIVA CAPS [facility] Diphenhydramine HCl (Benadryl Po*) 25 mg PO BEDTIME PRN PRN Reason: SLEEP Last Admin: 09/19/17 21:37 Dose: 25 mg Diphenoxylate HCl/Atropine (Lomotil Tab*) 1 tab PO BID PRN PRN Reason: DIARRHEA Docusate Sodium (Colace Cap*) 200 mg PO BID [facility] Last Admin: 09/20/17 10:21 Dose: 200 mg Enoxaparin Sodium (Lovenox(*)) 50 mg SUBCUT Q24H [facility] Last Admin: 09/20/17 12:46 Dose: 50 mg Fluorometholone Acetate (Fml 0.1% Opth.Susp*) 1 drop BOTH EYES BID [facility] Last Admin: 09/20/17 10:21 Dose: 1 drop Guaifenesin (Mucinex*) 1,200 mg PO BID [facility] Last Admin: 09/20/17 10:20 Dose: 1,200 mg Cefepime HCl (Maxipime 1 Gm In Dextrose Duplex (*)) 1 gm in 50 mls @ 100 mls/ hr IV Q24H [facility] Last Admin: 09/20/17 02:58 Dose: 100 mls/hr Levothyroxine Sodium (Synthroid Tab*) 75 mcg PO DAILY@0600 [facility] Last Admin: 09/20/17 05:40 Dose: 75 mcg Losartan Potassium (Cozaar Tab*) 25 mg PO DAILY [facility] Last Admin: 09/20/17 10:21 Dose: 25 mg Melatonin (Melatonin (Nf)) 3 mg PO BEDTIME PRN; Protocol PRN Reason: Sleep Last Admin: 09/19/17 04:02 Dose: 3 mg Metoprolol Succinate (Toprol Xl Tab*) 25 mg PO BID [facility] Mometasone Furoate/Formoterol Fumar (Dulera 200/5 Mdi*) 2 puff INH BID [facility] Last Admin: 09/20/17 07:33 Dose: 2 puff Omeprazole (Prilosec Cap*) 20 mg PO DAILY@0600 [facility] Last Admin: 09/20/17 05:40 Dose: 20 mg Ondansetron HCl (Zofran Inj*) 4 mg IV Q6H PRN PRN Reason: NAUSEA Tiotropium [place] (Spiriva Cap.Inh*) 1 cap INH DAILY [facility] Last Admin: 09/20/17 07:32 Dose: 1 cap Vital Signs - 8 hr 09/20/17 09/20/17 08:00 11:55 Temperature 97.2 F Pulse Rate 78 Respiratory 22 18 Rate Blood Pressure 102/50 (mmHg) O2 Sat by Pulse 100 Oximetry Oxygen Devices in Use Now: Nasal Cannula Appearance: chronically ill appearing, cachexia. Eyes: No Scleral Icterus Ears/Nose/Mouth/Throat: NL Teeth, Lips, Gums, Mucous Membranes Moist Neck: NL Appearance and Movements; NL JVP, Trachea Midline Respiratory: Symmetrical Chest Expansion and Respiratory Effort, - - mild rhonchi lower lobes. Cardiovascular: NL Sounds; No Murmurs; No JVD, RRR Abdominal: NL Sounds; No Tenderness; No Distention, - - hepatosplenomegaly Extremities: No Edema, No Clubbing, Cyanosis Skin: No Rash or Ulcers, No Nodules or Sclerosis Neurological: Alert and Oriented x 3, NL Sensation, NL Muscle Strength and Tone Nutrition: Taking PO's Result Diagrams: 09/20/17 12:30 09/20/17 12:30 Additional Lab and Data: Laboratory Results - last 24 hr 09/19/17 09/20/17 09/20/17 17:00 12:30 12:30 WBC 9.0 RBC 4.11 Hgb 9.8 L Hct 32 L MCV 77 L MCH 24 L MCHC 31 RDW 15 Plt Count 262 MPV 8.0 Neut % (Auto) 88.7 H Lymph % (Auto) 4.0 L [place] % (Auto) 6.3 Eos % (Auto) 0.4 Baso % (Auto) 0.6 Absolute Neuts (auto) 8.0 H Absolute Lymphs (auto) 0.4 L Absolute Monos (auto) 0.6 Absolute Eos (auto) 0 Absolute Basos (auto) 0.1 Absolute Nucleated RBC 0 Nucleated RBC % 0 Sodium 139 Potassium 4.9 Chloride 107 Carbon Dioxide 27 Anion Gap 5 BUN 25 H Creatinine 1.71 H Est GFR ( Amer) 50.4 Est GFR (Non-Af Amer) 39.2 BUN/Creatinine Ratio 14.6 Glucose 91 Calcium 8.6 Troponin I 0.65 H* Microbiology and Other Data: Microbiology 09/18/17 23:52 Urine Urine Culture - Final 09/18/17 22:35 Blood Venous Aerobic Blood Culture - Preliminary No Growth Day 1 09/18/17 22:35 Blood Venous Anaerobic Blood Culture - Preliminary No Growth Day 1 09/18/17 22:35 Blood Venous Aerobic Blood Culture - Preliminary No Growth Day 1 09/18/17 22:35 Blood Venous Anaerobic Blood Culture - Preliminary No Growth Day 1 09/19/17 04:05 Urine Legionella Urinary Antigen - Final Negative Legionella Antigen 09/19/17 04:05 Urine Streptococcus pneumoniae Ag Screen - Final Negative S. pneumo Antigen 09/19/17 09:00 Nasal Nasal Screen MRSA (PCR)(PRAMOD) - Final Mrsa Not Detected 09/19/17 02:40 Nasopharyngeal Influenza Types A,B Antigen (PRAMOD) - Final Specimen received for Influenza A/B Molecular testing Assess/Plan/Problems-Billing Assessment: 76 year old female [facility] recently diagnosed metastatic bladder cancer (to liver), chronic hypoxic respiratory failure (4L) 2/2 COPD, right hydronephrosis, CKD p/ w acute respiratory failure, fevers, leukocytosis concering for HCAP. Improving. NSTEMI with regional WMA, EF 30-35%. Palliative care consulted. - Patient Problems (1) Bladder cancer metastasized to liver Current Visit: Yes Status: Acute Code(s): C67.9 - MALIGNANT NEOPLASM OF BLADDER, UNSPECIFIED; C78.7 - SECONDARY MALIG NEOPLASM OF LIVER AND INTRAHEPATIC BILE DUCT SNOMED Code(s): 64699098 Comment: Planned f/u with Dr. Phillips this Tuesday. Dr. Aguero discussed with her and reportedly not much she plans to offer him. Palliative care consulted. (2) Acute and chronic respiratory failure Current Visit: Yes Status: Acute Code(s): J96.20 - ACUTE AND CHR RESP FAILURE, UNSP W HYPOXIA OR HYPERCAPNIA SNOMED Code(s): 35895670 Comment: suspected 2/[address] chest with mucous plugging b/l lower lobes. s/p vanc, levaquin. continuing cefepime. Cultures negative. chronic 4L 2/2 COPD. back to baseline. continue nebs, inhalers. (3) NSTEMI (non-ST elevated myocardial infarction) Current Visit: Yes Status: Acute Code(s): I21.4 - NON-ST ELEVATION (NSTEMI) MYOCARDIAL INFARCTION SNOMED Code(s): 676995195 Comment: pt does not want to proceed to nuclear stress. Kidney function would have made LHC very risky. aspirin 81mg daily metoprolol succinate 25mg BID losartan 25mg daily started. monitor renal function. stop 1mg/kg lovenox tomorrow. EF 30-35% with regional wma. (4) COPD (chronic obstructive pulmonary disease) Current Visit: Yes Status: Acute Code(s): J44.9 - CHRONIC OBSTRUCTIVE PULMONARY DISEASE, UNSPECIFIED SNOMED Code(s): 07902276 Comment: nebs, inhalers. (5) HTN (hypertension) Current Visit: No Status: Acute Priority: Medium Code(s): I10 - ESSENTIAL (PRIMARY) HYPERTENSION SNOMED Code(s): 09362074 Comment: BB, ARB Status and Disposition: potential d/c tomorrow. medicine inpatient.
[2017-09-20] MEDS: Metoprolol Succinate XL TAB* 25 MG PO SCH (20:29)
[2017-09-20] MEDS: Albuterol HFA INHALER* 8 gm MDI INH SCH (22:36)
[2017-09-20] MEDS: CMCS:Melatonin (NF) 3 MG TAB PO PRN (23:24)
[2017-09-21] MEDS: Cefepime 1 GM in Dextrose(*) 1 GM/50 ML BAG IV SCH (03:25)
[2017-09-21] MEDS: Levothyroxine TAB* 75 MCG TAB PO SCH (05:46)
[2017-09-21] MEDS: Omeprazole CAP* 20 MG PO SCH (05:46)
[2017-09-21] MEDS: Albuterol HFA INHALER* 8 gm MDI INH SCH ×4 (07:39→19:39)
[2017-09-21] MEDS: Mometasone/Formoter 200/5 MDI INH SCH ×2 (07:40→19:39)
[2017-09-21] MEDS: Tiotropium CAP.INH* CAP.INH/18 MCG (USE ORDER SET !) INH SCH (07:41)
[2017-09-21] MEDS: Polyethylene Glycol 3350* 17 GM PACKET PO SCH (10:22)
[2017-09-21] MEDS: Docusate CAP* 100 MG PO SCH ×2 (10:23→20:32)
[2017-09-21] MEDS: Fluorometholone 0.1% OPTH.SUS* 5 ML BTL BOTH EYES SCH ×2 (10:24→20:32)
[2017-09-21] MEDS: Losartan TAB* 25 MG PO SCH (10:27)
[2017-09-21] MEDS: Metoprolol Succinate XL TAB* 25 MG PO SCH ×2 (10:27→20:32)
[2017-09-21] MEDS: Aspirin EC TAB* 81 MG TAB.EC PO SCH (10:28)
[2017-09-21] MEDS ORDERED: Magnesium CITRATE* 300 ML BTL PO ONE (11:14)
[2017-09-21] MEDS: guaiFENesin ER TAB 600 MG PO SCH ×2 (12:07→20:32)
[2017-09-21] MEDS: Enoxaparin(*) 60 MG/0.6 ML SYR SUBCUT SCH (13:34)
--- NOTE | 2017-09-21 17:21 | PN ---
Subjective Date of Service: 09/21/17 Interval History: Pt without BM, concerned about that. Able to walk to bathroom. coughing. baselin oxygen afebrile Objective Active Medications: Acetaminophen (Tylenol Tab*) 650 mg PO Q6H PRN PRN Reason: FEVER/PAIN Albuterol (Ventolin Hfa Inhaler*) 2 puff INH RT.QID [facility] Last Admin: 09/21/17 15:59 Dose: 2 puff Aspirin (Aspirin Ec Tab*) 81 mg PO DAILY [facility] Last Admin: 09/21/17 10:28 Dose: 81 mg Brimonidine Tartrate (Alphagan 0.2%) 1 drop LEFT EYE BID [facility] Last Admin: 09/21/17 10:27 Dose: 1 drop Device (Tiotropium Inhaler Device*) 1 each .SEE ORDER .USE w/ SPIRIVA CAPS [facility] Diphenhydramine HCl (Benadryl Po*) 25 mg PO BEDTIME PRN PRN Reason: SLEEP Last Admin: 09/19/17 21:37 Dose: 25 mg Diphenoxylate HCl/Atropine (Lomotil Tab*) 1 tab PO BID PRN PRN Reason: DIARRHEA Docusate Sodium (Colace Cap*) 200 mg PO BID [facility] Last Admin: 09/21/17 10:23 Dose: 200 mg Enoxaparin Sodium (Lovenox(*)) 50 mg SUBCUT Q24H [facility] Last Admin: 09/21/17 13:34 Dose: 50 mg Fluorometholone Acetate (Fml 0.1% Opth.Susp*) 1 drop BOTH EYES BID [facility] Last Admin: 09/21/17 10:24 Dose: 1 drop Guaifenesin (Mucinex*) 1,200 mg PO BID [facility] Last Admin: 09/21/17 12:07 Dose: 1,200 mg Cefepime HCl (Maxipime 1 Gm In Dextrose Duplex (*)) 1 gm in 50 mls @ 100 mls/ hr IV Q24H [facility] Last Admin: 09/21/17 03:25 Dose: 100 mls/hr Levothyroxine Sodium (Synthroid Tab*) 75 mcg PO DAILY@0600 [facility] Last Admin: 09/21/17 05:46 Dose: 75 mcg Losartan Potassium (Cozaar Tab*) 25 mg PO DAILY [facility] Last Admin: 09/21/17 10:27 Dose: 25 mg Melatonin (Melatonin (Nf)) 3 mg PO BEDTIME PRN; Protocol PRN Reason: Sleep Last Admin: 09/20/17 23:24 Dose: 3 mg Metoprolol Succinate (Toprol Xl Tab*) 25 mg PO BID [facility] Last Admin: 09/21/17 10:27 Dose: 25 mg Mometasone Furoate/Formoterol Fumar (Dulera 200/5 Mdi*) 2 puff INH BID [facility] Last Admin: 09/21/17 07:40 Dose: 2 puff Omeprazole (Prilosec Cap*) 20 mg PO DAILY@0600 [facility] Last Admin: 09/21/17 05:46 Dose: 20 mg Ondansetron HCl (Zofran Inj*) 4 mg IV Q6H PRN PRN Reason: NAUSEA Polyethylene Glycol/Electrolytes (Miralax*) 17 gm PO DAILY [facility] Last Admin: 09/21/17 10:22 Dose: 17 gm Tiotropium [place] (Spiriva Cap.Inh*) 1 cap INH DAILY [facility] Last Admin: 09/21/17 07:41 Dose: 1 cap Vital Signs - 8 hr 09/21/17 15:39 Temperature 97.4 F Pulse Rate 84 Respiratory 16 Rate Blood Pressure 130/71 (mmHg) O2 Sat by Pulse 99 Oximetry Oxygen Devices in Use Now: Nasal Cannula Appearance: chronically ill appearing. Eyes: No Scleral Icterus, PERRLA Ears/Nose/Mouth/Throat: NL Teeth, Lips, Gums, Mucous Membranes Moist Respiratory: Symmetrical Chest Expansion and Respiratory Effort, Clear to Auscultation Cardiovascular: NL Sounds; No Murmurs; No JVD Abdominal: NL Sounds; No Tenderness; No Distention, No Hepatosplenomegaly Extremities: No Edema Skin: No Rash or Ulcers, No Nodules or Sclerosis Neurological: Alert and Oriented x 3, NL Sensation, NL Muscle Strength and Tone Nutrition: Taking PO's Result Diagrams: 09/20/17 12:30 09/20/17 12:30 Microbiology and Other Data: Microbiology 09/18/17 22:35 Blood Venous Aerobic Blood Culture - Preliminary No Growth Day 2 09/18/17 22:35 Blood Venous Anaerobic Blood Culture - Preliminary No Growth Day 2 09/18/17 22:35 Blood Venous Aerobic Blood Culture - Preliminary No Growth Day 2 09/18/17 22:35 Blood Venous Anaerobic Blood Culture - Preliminary No Growth Day 2 09/18/17 23:52 Urine Urine Culture - Final 09/19/17 04:05 Urine Legionella Urinary Antigen - Final Negative Legionella Antigen 09/19/17 04:05 Urine Streptococcus pneumoniae Ag Screen - Final Negative S. pneumo Antigen 09/19/17 09:00 Nasal Nasal Screen MRSA (PCR)(PRAMOD) - Final Mrsa Not Detected 09/19/17 02:40 Nasopharyngeal Influenza Types A,B Antigen (PRAMOD) - Final Specimen received for Influenza A/B Molecular testing Assess/Plan/Problems-Billing Assessment: 76 year old female [facility] recently diagnosed metastatic bladder cancer (to liver), chronic hypoxic respiratory failure (4L) 2/2 COPD, right hydronephrosis, CKD p/ w acute respiratory failure, fevers, leukocytosis concering for HCAP. Improving. NSTEMI with regional WMA, EF 30-35%. Palliative care consulted. - Patient Problems (1) Bladder cancer metastasized to liver Current Visit: Yes Status: Acute Code(s): C67.9 - MALIGNANT NEOPLASM OF BLADDER, UNSPECIFIED; C78.7 - SECONDARY MALIG NEOPLASM OF LIVER AND INTRAHEPATIC BILE DUCT SNOMED Code(s): 38725198 Comment: Planned f/u with Dr. Phillips this Tuesday. Dr. Aguero discussed with her and reportedly not much she plans to offer him. Palliative care consulted. (2) Acute and chronic respiratory failure Current Visit: Yes Status: Acute Code(s): J96.20 - ACUTE AND CHR RESP FAILURE, UNSP W HYPOXIA OR HYPERCAPNIA SNOMED Code(s): 81096048 Comment: suspected 2/[address] chest with mucous plugging b/l lower lobes. s/p vanc, levaquin. continuing cefepime. Cultures negative. chronic 4L 2/2 COPD. back to baseline. continue nebs, inhalers. (3) NSTEMI (non-ST elevated myocardial infarction) Current Visit: Yes Status: Acute Code(s): I21.4 - NON-ST ELEVATION (NSTEMI) MYOCARDIAL INFARCTION SNOMED Code(s): 391812388 Comment: pt does not want to proceed to nuclear stress. Kidney function would have made LHC very risky. aspirin 81mg daily metoprolol succinate 25mg BID losartan 25mg daily started. monitor renal function. stop 1mg/kg lovenox tomorrow. EF 30-35% with regional wma. (4) COPD (chronic obstructive pulmonary disease) Current Visit: Yes Status: Acute Code(s): J44.9 - CHRONIC OBSTRUCTIVE PULMONARY DISEASE, UNSPECIFIED SNOMED Code(s): 48041953 Comment: nebs, inhalers. (5) HTN (hypertension) Current Visit: No Status: Acute Priority: Medium Code(s): I10 - ESSENTIAL (PRIMARY) HYPERTENSION SNOMED Code(s): 05707832 Comment: BB, ARB Status and Disposition: potential d/c tomorrow. medicine inpatient.
[2017-09-21] MEDS: CMCS:Melatonin (NF) 3 MG TAB PO PRN (23:23)
[2017-09-22] MEDS: Cefepime 1 GM in Dextrose(*) 1 GM/50 ML BAG IV SCH (03:17)
[2017-09-22 05:07] LABS: EGFR Non-African American 37.9 (>60)
[2017-09-22] MEDS: Levothyroxine TAB* 75 MCG TAB PO SCH (05:12)
[2017-09-22] MEDS: Omeprazole CAP* 20 MG PO SCH (05:12)
[2017-09-22] MEDS ORDERED: Vancomycin Trough Check NOTE FOLLOW UP ONE (05:30)
[2017-09-22] MEDS: Albuterol HFA INHALER* 8 gm MDI INH SCH ×2 (07:49→12:12)
[2017-09-22] MEDS: Tiotropium CAP.INH* CAP.INH/18 MCG (USE ORDER SET !) INH SCH (07:49)
[2017-09-22] MEDS: Mometasone/Formoter 200/5 MDI INH SCH (07:50)
[2017-09-22] MEDS: Fluorometholone 0.1% OPTH.SUS* 5 ML BTL BOTH EYES SCH (08:23)
[2017-09-22] MEDS: Metoprolol Succinate XL TAB* 25 MG PO SCH (08:24)
[2017-09-22] MEDS: Losartan TAB* 25 MG PO SCH (08:24)
[2017-09-22] MEDS: Docusate CAP* 100 MG PO SCH (08:24)
[2017-09-22] MEDS: Aspirin EC TAB* 81 MG TAB.EC PO SCH (08:24)
[2017-09-22] MEDS: Polyethylene Glycol 3350* 17 GM PACKET PO SCH (08:25)
[2017-09-22] MEDS: guaiFENesin ER TAB 600 MG PO SCH (08:25)
--- NOTE | 2017-09-22 12:28 | CONSULT ---
Palliative / Hospice Consult Ordering Provider: Klaus Marmolejo - Subjective Code Status: Full Code-Needs Follow Up Advance Directives Location: In Chart [facility] Part A Completed: Yes - DNR Date: 09/22/17 [facility] Part E Completed:: Yes - DNI/DNH, no MANDI Date: 09/22/17 - History or Present Illness History or Present Illness: This 76 year old man with PMH of severe COPD chronically on 4 L O2 at home, as well as Crohn's, hypothyroidism, BPH, has had bladder cancer for iich he has seen Dr. Phillips at [place]. He was admitted on 09/19/17 with fever and dyspnea, and subsequent work up revealed NSTEMI. He has had hydronephrosis due to stage 4 bladder cancer. He has lost 50 lbs. in the past year. He is a full code. Lab Values: Abnormal Lab Results 09/22/17 04:28 Sodium 139 Potassium 5.1 H Chloride 106 Carbon Dioxide 32 Anion Gap 1 L BUN 25 H Creatinine 1.76 H Est GFR ( Amer) 48.8 Est GFR (Non-Af Amer) 37.9 BUN/Creatinine Ratio 14.2 Glucose 91 Calcium 8.5 L Laboratory Last Values WBC 9.0 10^3/ul (3.5-10.8) 09/20/17 12:30 RBC 4.11 10^6/ul (4.0-5.4) 09/20/17 12:30 Hgb 9.8 g/dl (14.0-18.0) L 09/20/17 12:30 Hct 32 % (42-52) L 09/20/17 12:30 MCV 77 fL (80-94) L 09/20/17 12:30 MCH 24 pg (27-31) L 09/20/17 12:30 MCHC 31 g/dl (31-36) 09/20/17 12:30 RDW 15 % (10.5-15) 09/20/17 12:30 Plt Count 262 10^3/ul (150-450) 09/20/17 12:30 MPV 8.0 um3 (7.4-10.4) 09/20/17 12:30 Neut % (Auto) 88.7 % (38-83) H 09/20/17 12:30 Lymph % (Auto) 4.0 % (25-47) L 09/20/17 12:30 [place] % (Auto) 6.3 % (0-7) 09/20/17 12:30 Eos % (Auto) 0.4 % (0-6) 09/20/17 12:30 Baso % (Auto) 0.6 % (0-2) 09/20/17 12:30 Absolute Neuts (auto) 8.0 10^3/ul (1.5-7.7) H 09/20/17 12:30 Absolute Lymphs (auto) 0.4 10^3/ul (1.0-4.8) L 09/20/17 12:30 Absolute Monos (auto) 0.6 10^3/ul (0-0.8) 09/20/17 12:30 Absolute Eos (auto) 0 10^3/ul (0-0.6) 09/20/17 12:30 Absolute Basos (auto) 0.1 10^3/ul (0-0.2) 09/20/17 12:30 Absolute Nucleated RBC 0 10^3/ul 09/20/17 12:30 Nucleated RBC % 0 09/20/17 12:30 INR (Anticoag Therapy) 1.02 (0.77-1.02) 09/18/17 20:20 APTT 30.0 seconds (26.0-36.3) 09/18/17 20:20 D-Dimer, Quantitative 998 ng/mL (Less Than 230) H 09/18/17 20:20 Sodium 139 mmol/L (139-145) 09/22/17 04:28 Potassium 5.1 mmol/L (3.5-5.0) H 09/22/17 04:28 Chloride 106 mmol/L (101-111) 09/22/17 04:28 Carbon Dioxide 32 mmol/L (22-32) 09/22/17 04:28 Anion Gap 1 mmol/L (2-11) L 09/22/17 04:28 BUN 25 mg/dL (6-24) H 09/22/17 04:28 Creatinine 1.76 mg/dL (0.67-1.17) H 09/22/17 04:28 Est GFR ( Amer) 48.8 (>60) 09/22/17 04:28 Est GFR (Non-Af Amer) 37.9 (>60) 09/22/17 04:28 BUN/Creatinine Ratio 14.2 (8-20) 09/22/17 04:28 Glucose 91 mg/dL (70-100) 09/22/17 04:28 Lactic Acid 2.0 mmol/L (0.5-2.0) 09/18/17 20:20 Calcium 8.5 mg/dL (8.6-10.3) L 09/22/17 04:28 Magnesium 1.8 mg/dL (1.9-2.7) L 09/18/17 20:20 Total Bilirubin 0.40 mg/dL (0.2-1.0) 09/18/17 20:20 AST 33 U/L (13-39) 09/18/17 20:20 ALT 17 U/L (7-52) 09/18/17 20:20 Alkaline Phosphatase 66 U/L (34-104) 09/18/17 20:20 Total Creatine Kinase 50 U/L (10-223) 09/18/17 20:20 CK-MB (CK-2) 4.6 ng/mL (0.6-6.3) 09/18/17 20:20 Troponin I 0.65 ng/mL (<0.04) H* 09/19/17 17:00 B-Natriuretic Peptide 138 pg/mL (-100) H 09/18/17 20:20 Total Protein 7.4 g/dL (6.4-8.9) 09/18/17 20:20 Albumin 3.8 g/dL (3.2-5.2) 09/18/17 20:20 Globulin 3.6 g/dL (2-4) 09/18/17 20:20 Albumin/Globulin Ratio 1.1 (1-3) 09/18/17 20:20 TSH 19.50 mcIU/mL (0.34-5.60) H 09/18/17 20:20 Thyroxine (T4) 8.65 mcg/mL (6.09-12.23) 09/18/17 20:20 Urine Color Yellow 09/18/17 23:52 Urine Appearance Clear 09/18/17 23:52 Urine pH 5.0 (5-9) 09/18/17 23:52 Ur Specific [place] 1.030 (1.010-1.030) 09/18/17 23:52 Urine Protein 2+(100 mg/dl) (Negative) A 09/18/17 23:52 Urine Ketones Negative (Negative) 09/18/17 23:52 Urine Blood Negative (Negative) 09/18/17 23:52 Urine Nitrate Negative (Negative) 09/18/17 23:52 Urine Bilirubin Negative (Negative) 09/18/17 23:52 Urine Urobilinogen Negative (Negative) 09/18/17 23:52 Ur Leukocyte Esterase Negative (Negative) 09/18/17 23:52 Urine WBC (Auto) Trace(0-5/hpf) (Absent) 09/18/17 23:52 Urine RBC (Auto) 1+(3-5/hpf) (Absent) A 09/18/17 23:52 Ur Squamous Epith Cells Present (Absent) A 09/18/17 23:52 Urine Bacteria Absent (Absent) 09/18/17 23:52 Urine Glucose Negative (Negative) 09/18/17 23:52 Urine Ascorbic Acid * (Negative) A 09/18/17 23:52 Influenza A (Rapid) Negative (Negative) 09/19/17 02:46 Influenza B (Rapid) Negative (Negative) 09/19/17 02:46 - Objective Active Medications: Acetaminophen (Tylenol Tab*) 650 mg PO Q6H PRN PRN Reason: FEVER/PAIN Albuterol (Ventolin Hfa Inhaler*) 2 puff INH RT.QID [facility] Last Admin: 09/22/17 12:12 Dose: 2 puff Aspirin (Aspirin Ec Tab*) 81 mg PO DAILY [facility] Last Admin: 09/22/17 08:24 Dose: 81 mg Brimonidine Tartrate (Alphagan 0.2%) 1 drop LEFT EYE BID [facility] Last Admin: 09/22/17 08:23 Dose: 1 drop Device (Tiotropium Inhaler Device*) 1 each .SEE ORDER .USE w/ SPIRIVA CAPS [facility] Diphenhydramine HCl (Benadryl Po*) 25 mg PO BEDTIME PRN PRN Reason: SLEEP Last Admin: 09/19/17 21:37 Dose: 25 mg Diphenoxylate HCl/Atropine (Lomotil Tab*) 1 tab PO BID PRN PRN Reason: DIARRHEA Docusate Sodium (Colace Cap*) 200 mg PO BID [facility] Last Admin: 09/22/17 08:24 Dose: 200 mg Enoxaparin Sodium (Lovenox(*)) 50 mg SUBCUT Q24H [facility] Last Admin: 09/21/17 13:34 Dose: 50 mg Fluorometholone Acetate (Fml 0.1% Opth.Susp*) 1 drop BOTH EYES BID [facility] Last Admin: 09/22/17 08:23 Dose: 1 drop Guaifenesin (Mucinex*) 1,200 mg PO BID [facility] Last Admin: 09/22/17 08:25 Dose: 1,200 mg Cefepime HCl (Maxipime 1 Gm In Dextrose Duplex (*)) 1 gm in 50 mls @ 100 mls/ hr IV Q24H [facility] Last Admin: 09/22/17 03:17 Dose: 100 mls/hr Levothyroxine Sodium (Synthroid Tab*) 75 mcg PO DAILY@0600 [facility] Last Admin: 09/22/17 05:12 Dose: 75 mcg Losartan Potassium (Cozaar Tab*) 25 mg PO DAILY [facility] Last Admin: 09/22/17 08:24 Dose: 25 mg Melatonin (Melatonin (Nf)) 3 mg PO BEDTIME PRN; Protocol PRN Reason: Sleep Last Admin: 09/21/17 23:23 Dose: 3 mg Metoprolol Succinate (Toprol Xl Tab*) 25 mg PO BID [facility] Last Admin: 09/22/17 08:24 Dose: 25 mg Mometasone Furoate/Formoterol Fumar (Dulera 200/5 Mdi*) 2 puff INH BID [facility] Last Admin: 09/22/17 07:50 Dose: 2 puff Omeprazole (Prilosec Cap*) 20 mg PO DAILY@0600 [facility] Last Admin: 09/22/17 05:12 Dose: 20 mg Ondansetron HCl (Zofran Inj*) 4 mg IV Q6H PRN PRN Reason: NAUSEA Polyethylene Glycol/Electrolytes (Miralax*) 17 gm PO DAILY [facility] Last Admin: 09/22/17 08:25 Dose: 17 gm Tiotropium [place] (Spiriva Cap.Inh*) 1 cap INH DAILY [facility] Last Admin: 09/22/17 07:49 Dose: 1 cap Vital Signs: Vital Signs: Temp Pulse Resp BP Pulse Ox 97.8 F 78 18 122/56 98 09/22/17 03:22 09/22/17 12:16 09/22/17 12:16 09/22/17 03:22 09/22/17 12:16 Patient Weight: Weight 107 lb 4.8 oz Intake and Output: Intake & Output 09/20/17 09/21/17 09/22/17 09/23/17 06:59 06:59 06:59 06:59 Intake Total 3471 1507 400 Output Total 1500 800 450 Balance 1971 707 -50 Intake: IV Fluids 2561 782 25 ABX - CEFEPIME 50 25 25 NS (0.9%) 2511 757 IVPB 55 55 ABX - CEFEPIME 55 55 Oral 910 670 320 Output: Urine 1500 800 450 Other: # Bowel Movements 0 0 0 # Voids 0 1 2 ADLs: Meal Record Start: 09/19/17 02: 35 Freq: DAILY@0900,1400,1800 Status: Active Protocol: Document 09/19/17 09:12 [id number] (Rec: 09/19/17 09:12 [id number] TELE-C01) Document 09/19/17 13:40 [id number] (Rec: 09/19/17 13:41 [id number] TELE-C01) Document 09/19/17 18:00 [id number] (Rec: 09/19/17 22:15 [id number] TELE-C01) Document 09/20/17 09:00 [id number] (Rec: 09/20/17 10:29 [id number] TELE-C03) Document 09/20/17 14:00 [id number] (Rec: 09/20/17 14:37 [id number] TELE-C03) Document 09/20/17 17:57 [id number] (Rec: 09/20/17 17:57 [id number] TELE-C01) Document 09/21/17 09:00 [id number] (Rec: 09/21/17 14:24 [id number] TELE-C01) Document 09/21/17 14:00 [id number] (Rec: 09/21/17 14:29 [id number] TELE-C01) Intake and Output Start: 09/19/17 02: 35 Freq: DAILY@0600,1400,2200 Status: Active Protocol: Document 09/19/17 06:00 [id number] (Rec: 09/19/17 06:02 [id number] TELE-C32) Document 09/19/17 13:29 [id number] (Rec: 09/19/17 13:30 [id number] TELE-C03) Document 09/19/17 22:00 [id number] (Rec: 09/19/17 22:18 [id number] TELE-C01) Document 09/20/17 04:35 [id number] (Rec: 09/20/17 04:35 [id number] TELE-C08) Document 09/20/17 05:45 [id number] (Rec: 09/20/17 05:46 [id number] TELE-M03) Document 09/20/17 14:00 [id number] (Rec: 09/20/17 14:37 [id number] TELE-C03) Document 09/20/17 21:53 [id number] (Rec: 09/20/17 21:54 [id number] TELE-C01) Document 09/21/17 06:00 [id number] (Rec: 09/21/17 06:06 [id number] TELE-C10) Document 09/21/17 14:00 [id number] (Rec: 09/21/17 14:29 [id number] TELE-C01) Document 09/21/17 21:47 [id number] (Rec: 09/21/17 21:48 [id number] TELE-C01) Document 09/22/17 05:53 [id number] (Rec: 09/22/17 05:54 [id number]) General Impression: Cachectic, disheveled man, alert and communicative. Head: Normal Eyes: No Scleral Icterus, PERRLA Ears/Nose/Mouth/Throat: NL Teeth, Lips, Gums, Mucous Membranes Moist Neck: NL Appearance and Movements; NL JVP, Trachea Midline Cardiovascular: NL Sounds; No Murmurs; No JVD Respiratory: Symmetrical Chest Expansion and Respiratory Effort, - - Increased AP diameter Abdominal: NL Sounds; No Tenderness; No Distention, No Hepatosplenomegaly Extremities: No Edema Neurological: Alert and Oriented x 3, NL Sensation, NL Muscle Strength and Tone - Assessment Assessment: I had a long discussion with the patient and his . They noth understand that he has incurable cancer. The patient's says Dr. Phillips has told the patient that he has no options for further treatment, but the patient wants to make it to an appointment with Dr. Phillips scheduled for tomorrow. He does understand that chemotherapy will not improve his quality of life, and he was interested in the Medicare Hospice benefit to obtain the ability to remain at home with no further hospitalizations and with comfort measures in place. He wants to be discharged today. He meets criteria for hospice with a primary diagnosis of metastatic bladder cancer and a secondary diagnosis of cachexia. He should have a referral to [facility] to initiate hospice coverage after he returns home. He still plans to see Dr. Phillips to discuss options once again, but he was quite adamant that he is interested in comfort measures only and a palliative approach, and prefers no further hospitalizations. We filled out a MOLST form to that effect. Thanks for asking me to see him. - Plan Consult Plan (MU): Hospice - Time On Unit Date of Evaluation: 09/22/17 Hospice Consult Time in: 11:30 Hospice Consult Time Out: 12:30 Hospice Consult Time Total: 60
[2017-09-22] MEDS: Enoxaparin(*) 60 MG/0.6 ML SYR SUBCUT SCH (12:40)
[2017-09-22 16:00] VITALS: BP 114/48
--- NOTE | 2017-09-23 01:19 | DS ---
DISCHARGE SUMMARY: DATE OF ADMISSION: 09/18/17 DATE OF DISCHARGE: 09/22/17 ADMITTING PROVIDER: Ottoniel Abreu MD ATTENDING PHYSICIAN: Klaus Marmolejo MD CONSULTING POTTERY MACHINE OPERATOR: Montana Aguero MD CONSULTING PALLIATIVE CARE: Brenda Santos MD PRIMARY CARE DOCTOR: Tomi Tay MD CHIEF COMPLAINT: Shortness of breath, fevers, constipation. PRINCIPAL DIAGNOSES: 1. Krp-RH-jqmlyzbee myocardial infarction. 2. Metastatic bladder cancer. 3. Acute on chronic hypoxic respiratory failure secondary to chronic obstructive pulmonary disease and pneumonia. HISTORY OF PRESENT ILLNESS: Suhail Burns is a 76-year-old male with past medical history of COPD with chronic hypoxic respiratory failure (4 L), Crohn's , hypothyroidism who has had 50 pounds of weight loss over the last year, recently diagnosed with bladder cancer with right-sided hydronephrosis and recent liver biopsy, results pending at the time of admission to family, but later revealing confirmation of metastatic cancer of likely bladder origin. He had recently been at [facility] on 09/10/17. He was at home when he started to get more short of breath with fevers, chills, temperature of 100.2 at home, malaise, fatigue. Please see H and P for full details. He had a chest x-ray in the emergency room, showed interval development of patchy density at the left worse than the right lung base, then a chest thorax CTA which showed no pulmonary arterial filling defect to suggest pulmonary embolism , mucus plugging at the lower lobes bilaterally and subsegmental atelectasis of the left lung base and stable severe right-sided hydronephrosis. He had leukocytosis of 14.1 with left shift and troponin elevation initially 0.48 peaked at 1.46. EKG showed left anterior fascicular block. There was a cardiology consultation with Dr. Montana Aguero and the patient eventually had a transthoracic echocardiogram, which showed significantly reduced ejection fraction of 30% to 35% and focal wall motion abnormalities. The mid anteroseptal, mid anterolateral, apical septal and apical lateral wall segments were hypokinetic and the mid anterior and apical anterior wall segments were akinetic. There is evidence of mild to moderate pulmonary hypertension. The patient was initially treated for suspected hospital associated pneumonia to cover resistant organisms with cefepime, vancomycin and Levaquin. were negative and Levaquin was stopped. On hospital day #2 vanco was also stopped, cefepime continued. He could be weaned down to his baseline 4 L of oxygen. In further discussions with Dr. 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 He was started on beta-yayo and an ARB, but then stopped with rising creatinine. Liver biopsy results were obtained and Dr. Aguero talked with Dr. Phillips, his outpatient oncologist, that there was likely very little that could be offered to him given his multiorgan dysfunction and performance status. Dr. Brenda Santos was consulted and the patient and family were very interested in enrolling in hospice services, but only after following up as an outpatient with Dr. Phillips to get formal recommendations. The patient is being discharged on 4 more days of Augmentin, though the patient originally was scheduled to get a stent to address his right hydronephrosis secondary to bladder cancer at [place], but that was not entertained at that time, reportedly due to improving kidney functions. Creatinine on admission was 1.61, on discharge 1.76. He had been 2.05 on 09/10/17 prior to transfer to [place]. The patient had negative legionella and Strep pneumonia urinary antigens. Blood cultures were negative x4 days. Influenza swabs were negative and urine culture also no clinically significant growth. The patient was afebrile during the admission. DISCHARGE MEDICATIONS: Include: 1. Augmentin 500 mg p.o. b.i.d. 4 tabs. 2. Aspirin 81 mg daily. 3. Albuterol 1 puff inhaled q.4 hours p.r.n. 4. Combivent 2 puffs inhaled q.6 hours. 5. Brimonidine tartrate 0.15% solution left eye b.i.d. 6. Symbicort b.i.d. inhaler b.i.d. 7. Cholecalciferol 1000 units p.o. daily. 8. Cranberry fruit extract 250 mg p.o. daily. 9. Diphenhydramine HCL 25 mg p.o. at bedtime p.r.n. 10. Docusate 200 mg p.o. b.i.d. p.r.n. (new). 11. Fluorometholone 0.1% ophthalmic solution both eyes b.i.d. 12. Mucinex 600 mg p.o. b.i.d. (new). 13. Levothyroxine 75 mcg p.o. daily. 14. Metoprolol succinate 25 mg p.o. b.i.d. (new). 15. Multivitamin 1 capsule p.o. daily. 16. MiraLAX 17 g p.o. daily (new). 17. Spiriva 1 capsule inhaled daily. DISCHARGE DIET: Heart healthy, unchanged. ACTIVITY LEVEL: No restrictions. FOLLOWUP: The patient is to follow up with Dr. Phillips of [facility] on the day after discharge, 09/23/17, and referral for baswxmj-er-qjzhriz care be pursued as an outpatient. Also consult with Dr. Tomi Tay, primary care provider, and [place] u[facility]ist if the patient changes his mind about enrolling in hospice at this time. TIME SPENT: Time spent on discharge 35 minutes. [id number]/[facility] #: [id number] KAVEH
== END 2017-09-22 14:15 | disposition home or self-care (01) | DRG 280 ==
LOC: ED 20:02 → MEDTELE 09-19 01:16
PROVIDERS: ADMIT Hospitalist; ATTEND Internal Medicine
DX: I21.4 Non-ST elevation (NSTEMI) myocardial infarction (principal); J96.21 Acute and chronic respiratory failure with hypoxia; J18.9 Pneumonia, unspecified organism; C78.7 Secondary malignant neoplasm of liver and intrahepatic bile duct; K50.90 Crohn's disease, unspecified, without complications; N13.30 Unspecified hydronephrosis; T17.890A Other foreign object in other parts of respiratory tract causing asphyxiation, initial encounter; R64 Cachexia; Z68.1 Body mass index [BMI] 19.9 or less, adult; J44.9 Chronic obstructive pulmonary disease, unspecified; C67.9 Malignant neoplasm of bladder, unspecified; E03.9 Hypothyroidism, unspecified; I27.20 Pulmonary hypertension, unspecified; H40.9 Unspecified glaucoma; I44.4 Left anterior fascicular block; Z99.81 Dependence on supplemental oxygen; Z85.46 Personal history of malignant neoplasm of prostate; Z79.899 Other long term (current) drug therapy; Z91.011 Allergy to milk products; Z93.3 Colostomy status; Z87.891 Personal history of nicotine dependence; Z82.0 Family history of epilepsy and other diseases of the nervous system; X58.XXXA Exposure to other specified factors, initial encounter; Y92.009 Unspecified place in unspecified non-institutional (private) residence as the place of occurrence of the external cause
CPT/HCPCS: 36415; 71045; 71275; 80048; 80053; 81003; 81015; 82550; 82553; 83605; 83735; 83880; 84436; 84443; 84484; 85025; 85379; 85610; 85730; 87040; 87086; 87502; 87641; 87899; 93005; 93306; 94640; 94760; 99284; A9270-GY; G8978-GP-CI; G8979-GP-CI; G8980-GP-CI; J0692; J1650; J3370; Q9967